=== PATIENT | male | born 1960 | race Caucasian/White ===

== ENCOUNTER 2022-08-19 10:04 | Inpatient (IN) | payer OTHER ==
[~2022-08-19] VITALS: Ht 177.8 cm; Wt 152.9 kg
[2022-08-19] MEDS ORDERED: MIDAZOLAM 5 MG/5 ML (VERSED) VIAL ONE (10:23)
[2022-08-19] MEDS ORDERED: fentaNYL INJ 100 MCG/2 ML AMP ONE (10:23)
[2022-08-19] MEDS ORDERED: EPTIFIBATIDE BOLUS 20 ML IV ONE (10:24)
[2022-08-19] MEDS ORDERED: LIDOCAINE 1% INJ 30 ML (XYLOCAINE) VIAL ONE (10:24)
[2022-08-19] MEDS ORDERED: HEParin 1000 UNIT/ML (10ML VIAL) FOR BOLUS ONE (10:24)
[2022-08-19] MEDS ORDERED: NS IV 1000 ML 1,000 ML ONE ×2 (10:24→11:40)
[2022-08-19] MEDS ORDERED: HEParin (CATH LAB) 2,000 ML IV ONE (10:24)
[2022-08-19] MEDS ORDERED: NITRO DRIP 25000 MCG/D5W 0 ML IV ONE (10:25)
[2022-08-19] MEDS ORDERED: diphenhydrAMINE 25 MG TAB (BENADRYL) PO PRN (10:45)
[2022-08-19] MEDS ORDERED: LACTULOSE SYRUP 10GM/15ML (ENULOSE) 30ML UDC PO PRN (10:45)
[2022-08-19] MEDS ORDERED: NS IV 1000 ML 1,000 ML IV SCH (10:45)
[2022-08-19] MEDS ORDERED: ANTACID SUSP 30 ML UDC (MYLANTA) PO PRN (10:45)
[2022-08-19] MEDS ORDERED: MILK OF MAGNESIA 400 MG/5 ML 30 ML UDC PO PRN (10:45)
[2022-08-19] MEDS ORDERED: BISACODYL 10 MG SUPP (DULCOLAX) PR PRN (10:45)
[2022-08-19] MEDS ORDERED: MELATONIN 3 MG TABLET PO PRN (10:45)
[2022-08-19] MEDS ORDERED: morphine INJ 4 MG/ML 1 ML (VIAL/SYRINGE) IV PRN ×2 (10:45→13:45)
[2022-08-19] MEDS ORDERED: ACETAMINOPHEN 325 MG TABLET PO PRN ×2 (10:45→13:15)
[2022-08-19] MEDS ORDERED: CALCIUM CARBONATE 500 MG (TUMS) TAB.CHEW PO PRN (10:45)
[2022-08-19] MEDS ORDERED: polyethylene glycoL POWDER 17 GM (MIRALAX) PACK PO PRN (10:45)
[2022-08-19] MEDS ORDERED: ONDANSETRON 4 MG (ZOFRAN) ORAL DISSOLVE TAB PO PRN (10:45)
[2022-08-19] MEDS ORDERED: diphenhydrAMINE 50 MG/ML INJ (BENADRYL) IVP PRN (10:45)
[2022-08-19] MEDS ORDERED: EPTIFIBATIDE BOLUS 10 ML IV ONE (11:17)
[2022-08-19] MEDS ORDERED: EPTIFIBATIDE DRIP 100 ML IV ONE (11:25)
[2022-08-19] MEDS ORDERED: DOPamine DRIP 0 ML IV ONE (11:29)
[2022-08-19] MEDS ORDERED: morphine INJ 4 MG/ML 1 ML (VIAL/SYRINGE) ONE (11:44)
[2022-08-19] MEDS ORDERED: TICAGRELOR 90 MG TABLET (BRILINTA) PO ONE (12:24)
[2022-08-19] MEDS ORDERED: FUROSEMIDE 40 MG/4 ML INJ (LASIX) ONE (12:50)
[2022-08-19] MEDS ORDERED: PATIENT MAY USE OWN MEDS, ALL PO SCH (13:15)
[2022-08-19] MEDS ORDERED: morphine INJ 10 MG/ML 1ML (SYR OR VIAL) IVP PRN (13:15)
--- NOTE | 2022-08-19 13:23 | Cardiac Procedure Note-CS/ASA ---
Pre-Procedure Note Pre-Op Procedure Note Date of Available H&P: Aug 19, 2022 Date H&P Reviewed: Aug 19, 2022 Time H&P Reviewed: 10:55 History & Physical: H&P Reviewed, No changes noted Conscious Sedation Pre-Proced ASA Score 4 For ASA 3 and 4: Consider anesthesia and medical clearance. Also, for patients with a history of failed moderate sedation consider anesthesia. Airway Lungs Heart ASA score ASA 1: a normal healthy patient ASA 2: a patient with a mild systemic disease (mid diabetes, controlled hypertension, obesity ASA 3: a patient with a severe systemic disease that limits activity (angina, COPD, prior Myocardial infarction) ASA 4: a patient with an incapacitating disease that is a constant threat to life (CHF, renal failure) ASA 5: a moribund patient not expected to survive 24 hrs. (ruptured aneurysm) ASA 6: a declared brain- patient whose organs are being harvested. For emergent operations, add the letter E after the classification Mallampati Classification Grade 3 Sedation Plan Analgesia, Amnesia, Plan communicated to team members The patient is an appropriate candidate to undergo the planned procedure, sedation, and anesthesia. The patient immediately re-assessed prior to indication. MANUELA VERAS MD FACP [facility] Aug 19, 2022 13:23
[2022-08-19] MEDS ORDERED: KCL 10 MEQ TAB (MICRO K) PO NR (13:30)
--- NOTE | 2022-08-19 13:35 | Cardiology History & Physical ---
HPI-Cardiology Cardiology H&P Date of Admission 08/19/22 Primary Care Physician Attending Physician: Constance Santos DO Attending Physician Angie Veras MD, MA FACP [facility]S Consulting Physician JUNIE 61 yo man who presented to the [place] ER with sudden onset of midsternal chest pain, severe pressure, radiating to shoulders, never experienced before, associated with diaphoresis and shortness of breath, w/o aggravating or relieving factors, diagnose as ac DE in [place] and referred to us for further e dimitris and treatment. Pt has chronic exertional shortness of breath. Has recently been experiencing dyspepsia. Denies vomiting or diarrhea. Has chronic joint and back pains Review of Systems-Cardiology Review of Systems Constitutional: malaise, tiredness; No weight loss, No weight gain Eyes: No vision change Ears/Nose/Throat: No ear discharge, No nasal drainage, No recent hearing loss Respiratory: As described under HPI Cardiovascular: As described under HPI Gastrointestinal: As described under HPI Genitourinary: No dysuria, No hematuria, No urine frequency changes Musculoskeletal: As describe under HPI Skin: No rash, No ulcerations Psychiatric/Neurological: No seizure, No focal weakness, No syncope Hematologic: No bleeding abnormalities UBE-Xqldrr-Safhtl Hx Past Medical History PMH As described under Assessment. Family Medical History Family Medical History: does not report fam h/o early CAD or SCD Allergies and Home Medications Allergies Coded Allergies: No Known Drug Allergies (Unverified , 08/19/22) Patient Home Medication List Home Medication List Reviewed: Yes Physical Exam-Cardiology Physical Exam Vital Signs/I&O 08/19/22 13:07 Temp 35.8 Pulse 105 Resp 26 B/P (MAP) 162/87 (112) Pulse Ox 91 O2 Delivery Nasal Cannula O2 Flow Rate 6.00 Capillary Refill : Constitutional: AAO x 3, well-developed, well-nourished HEENT: EOMI, hearing is well preserved; No xanthelasmas are seen Neck: carotid pulses are 2 + bilaterally, with good upstrokes Respiratory: No accessory muscle use; other (fair to good, bilateral air entry) Cardiovascular: regular rate-rhythm, S1 and S2, systolic murmur (soft JENNIFER at card base) Gastrointestinal: No tender; soft; No guarding, No rebound; audible bowel sounds Extremities: No clubbing, No cyanosis, No significant edema Neurologic/Psychiatric: oriented x 3, other (moves all limbs equally) Skin: No rash on exposed areas, No ulcerations on exposed areas A/P-Cardiology Assessment/Admission Diagnosis Ac ant wall STEMI - Card cath 08/19/22: LMCA Ok. LAD: up to 99% from ostium to mid portion, stented with PAULA (distal to prox - Supply 2.75x15, Supply 2.75x12, Supply 2.75x22, Skypoint 2.75x12). LCX has mild to mod diffuse plaque, OM 1 with up to 60% stenoses. RCA dominant, high anomalous origin, diffuse mild plaque. LVEF 31 mmHg. LVEF 45%, anteroapical hypokinesis DM II, insulin-requiring H/o SVT and / or A Fib, treated successfully with ablation several years ago, per pt report Hyperlipidemia that he is not treating Obesity Admission Status: Inpatient Order (span 2 midnights) Reason for Inpatient Admission: Ac DE Discussion and Recomendations * DAPT * Statin * Beta-trino * Monitor labs * Hosp consult for management of DM II * Echo * Discussed in detail with the patient, his , their son. Also discussed this am with Dr Santos on the phone ANGIE VERAS MD FACP FAC [facility]S Aug 19, 2022 13:35
[2022-08-19 13:40] VITALS: BP 147/83
--- NOTE | 2022-08-19 13:44 | History & Physical ---
History of Present Illness Date Seen 08/19/22 Attending Physician No,Local Physician PCP Admitting Physician: Constance Santos DO Attending Physician: Constance Santos DO Referring Physician Date of Admission Aug 19, 2022 at 10:50 Home Medications & Allergies Home Medications Reviewed patient Home Medication Reconciliation performed by pharmacy medication reconciliations surface lay out technician and/or nursing. Patients Allergies have been reviewed. Allergies Allergies Coded Allergies No Known Drug Allergies (Tkgfgvirvz47/17/22) Physical Exam Physical Exam Vital Signs Vital Signs - First Documented 08/19/22 13:07 Temp 35.8 Pulse 105 Resp 26 B/P (MAP) 162/87 (112) Pulse Ox 91 O2 Delivery Nasal Cannula O2 Flow Rate 6.00 Capillary Refill : Height, Weight, BMI Height: '" Weight: lbs. oz. kg; BMI Method: Results Results/Procedures Labs Patient resulted labs reviewed. CONSTANCE SANTOS DO Aug 19, 2022 13:44
[2022-08-19] MEDS ORDERED: INSN1U SQ (13:53)
[2022-08-19] MEDS ORDERED: INSU100V31 IJ (13:53)
[2022-08-19] MEDS: inSUlin ASPART (NovoLOG) 1 UNIT/0.01 ML (CHARGE PER UNIT) SC SCH ×3 (13:55→21:22)
[2022-08-19] MEDS: NS IV 1000 ML 1,000 ML IV SCH ×2 (13:56→15:08)
[2022-08-19 13:57] VITALS: BP 147/83
--- NOTE | 2022-08-19 13:57 | Diagnostic Imaging Report ---
INDICATION: Dyspnea and hypoxia. COMPARISON: None. DISCUSSION: 2 portable frontal views of the chest were obtained. Defibrillator patches are noted. Normal heart size. Mixed interstitial alveolar infiltrates are noted bilaterally and diffusely, likely edema, less likely pneumonia. No pleural fluid or pneumothorax. No osseous abnormality. IMPRESSION: 1. Severe pulmonary infiltrates, edema versus pneumonia. Dictated by: Dictated on workstation # [id number]
[2022-08-19 13:59] LABS: BILIRUBIN,URINE NEGATIVE (NEGATIVE); CLARITY,URINE CLEAR; COLOR,URINE YELLOW; GLUCOSE, URINE (UA) 2+ (NEGATIVE); KETONES,URINE NEGATIVE (NEGATIVE); LEUKOCYTE ESTERASE ,URINE NEGATIVE (NEGATIVE); NITRITE,URINE NEGATIVE (NEGATIVE); PROTEIN,URINE NEGATIVE (NEGATIVE)
[2022-08-19] MEDS ORDERED: RT-ALBUTEROL/IPRATROPIUM 3 ML (DUONEB) VIAL INH PRN (14:00)
--- NOTE | 2022-08-19 14:09 | Consultation ---
HPI History of Present Illness: HPI/Chief Complaint Chief complaint: Acute myocardial infarction with unstable angina requiring nitroglycerin drip and transferred from [facility] straight to cardiac catheterization with stent placement HPI: This is a 61-year-old white male clinic patient of Dr. 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 Immediate arrangements were made to transfer to cardiac catheterization with Dr. Saleem and ICU orders placed. Upon arrival he was vomiting but went straight to cardiac catheterization lab and required a very complicated long stent placement in the LAD. Source: patient, family, RN/MD Exam Limitations: clinical condition Date Seen 08/19/22 Attending Physician No,Local Physician PCP Admitting Physician: Constance Aldana DO Attending Physician: Constance Aldana DO Referring Physician Date of Admission Aug 19, 2022 at 10:50 Home Medications & Allergies Home Medications Reviewed patient Home Medication Reconciliation performed by pharmacy medication reconciliations desktop support technician and/or nursing. Patients Allergies have been reviewed. Allergies Allergies Coded Allergies No Known Drug Allergies (Txpgjuukxq25/17/22) Past Dhrsefj-Becvmt-Pwkxzz Hx Past Med/Social Hx: Reviewed Nursing Past Med/Soc Hx, Reviewed and Corrections made Patient Social History Marrital Status: Employed/Student: employed Alcohol Use: Denies Use Smoking Status: Never a Smoker Past Medical History Cardiac: Atrial Fibrillation Endocrine: Diabetes, Insulin dep Review of Systems Constitutional: see HPI, malaise, weakness EENTM: no symptoms reported Respiratory: dyspnea on exertion Cardiovascular: chest pain Gastrointestinal: nausea, vomiting Genitourinary: no symptoms reported Musculoskeletal: no symptoms reported Skin: no symptoms reported Psychiatric/Neurological: No Symptoms Reported All Other Systems Reviewed Negative Unless Noted: Yes Physical Exam Physical Exam Vital Signs Vital Signs - First Documented 08/19/22 08/19/22 13:04 13:07 Temp 35.8 Pulse 106 Resp 26 B/P (MAP) 162/87 (112) Pulse Ox 91 O2 Delivery Nasal Cannula O2 Flow Rate 6.00 Capillary Refill : Height, Weight, BMI Height: '" Weight: lbs. oz. kg; 48.30 BMI Method: General Appearance: WD/WN, Anxious, Moderate Distress, Other (Blount and ashen) Eyes: Bilateral Eye Normal Inspection, Bilateral Eye PERRL HEENT: PERRL/EOMI, Normal ENT Inspection, Pharynx Normal Neck: Full Range of Motion, Normal Inspection, Non Tender, Supple, Carotid Bruit Respiratory: Chest Non Tender, Lungs Clear, Normal Breath Sounds, No Accessory Muscle Use, No Respiratory Distress Cardiovascular: Regular Rate, Rhythm, No Edema, No Gallop, No JVD, No Murmur, Normal Peripheral Pulses Gastrointestinal: Normal Bowel Sounds, No Organomegaly, No Pulsatile Mass, Non Tender, Soft Back: Normal Inspection, No CVA Tenderness, No Vertebral Tenderness Extremity: Normal Capillary Refill, Normal Inspection, Normal Range of Motion, Non Tender, No Calf Tenderness, No Pedal Edema Neurologic/Psychiatric: Alert, Oriented x3, No Motor/Sensory Deficits, Normal Mood/Affect Skin: Normal Color, Warm/Dry Lymphatic: No Adenopathy Results Results/Procedures Labs Laboratory Tests 08/20/22 03:46 Patient resulted labs reviewed. Assessment/Plan Assessment and Plan Assess & Plan/Chief Complaint Assessment: Acute myocardial infarction with unstable angina presentation at [facility] requiring emergent transfer to cardiac catheterization lab and complicated LAD stent placement by Dr. Saleem History of atrial fibrillation status post ablation Diabetes insulin-dependent Refusal to take statins Suspected SAMI Plan: Appreciate Dr. Saleem Supportive care Stent placement protocol Diagnosis/Problems Diagnosis/Problems (1) Myocardial infarction acute CONSTANCE ALDANA DO Aug 19, 2022 14:09
[2022-08-19 14:10] LABS: BACTERIA,URINE NEGATIVE /HPF
--- NOTE | 2022-08-19 14:14 | Tele-ICU Progress Note ---
Subjective Date Seen by a Provider: Aug 19, 2022 Time Seen by a Provider: 14:14 Subjective/Events-last exam H&P is from ER notes Patient's information available about PMH, allergy reviewed in EMR. ROS as per chart and RN report Video assessment done using teleICU camera, rest of exam as per RN Discussed with RN. He is a 61-year-old male with past medical history of obesity, type 2 diabetes mellitus requiring insulin and hyperlipidemia admitted to [facility] with a central chest pain and found to have a STEMI and subsequently he is transferred to [facility] in [place] for higher level of care. He was immediately taken to the cardiac Treatment Technician and coronary angiogram done which showed LAD occlusion up to 99% from ostium to midportion requiring 4 stents. Postprocedure he is admitted to the intensive care unit at which time I have evaluated via video and discussed with the HAND CANDY DIPPER. Patient is having shortness of breath and constant cough and ICU nurse reported that patient having gurgling sounds and bilateral coarse rales. Immediately I have ordered a chest x-ray which showed her evidence of pulmonary edema hence I have ordered a additional Lasix and BiPAP ventilation. No telemetry ICU consultation requested however in view of his respiratory distress and per protocol I am evaluating the patient. Impression 1. Acute STEMI anterior wall status post LAD stenting x4 with a drug elevated stents. 2. Slightly decreased LV left ventricular ejection fraction with pulmonary edema 3. Acute hypoxic respiratory failure requiring BiPAP ventilation 4. Morbid obesity 5. History of hyperlipidemia 6. Type 2 diabetes mellitus requiring insulin 7. History of some tacky arrhythmia apparently successfully treated with ablation several years ago per patient report Recommendations 1. BiPAP ventilation 2. IV Lasix 3. STEMI treatment per cardiology 4. We will repeat chest x-ray and electrolytes. 5. Management type 2 diabetes mellitus per primary care physician 6. DVT prophylaxis per cardiology. Sepsis Event Evaluation Height, Weight, BMI Height: '" Weight: lbs. oz. kg; 48.30 BMI Method: Exam Exam Patient acknowledged, consented, and participated in this virtual visit which was conducted using real time audio/video Vital Signs Date Time Temp Pulse Resp B/P (MAP) Pulse Ox O2 Delivery O2 Flow Rate FiO2 08/19/22 13:57 35.8 100 100 08/19/22 13:54 NIV Bilevel 40.00 08/19/22 13:40 100 26 100 40.00 08/19/22 13:10 85 Nasal Cannula 6.00 08/19/22 13:07 35.8 105 26 162/87 (112) 91 Nasal Cannula 6.00 Height & Weight Height: '" Weight: lbs. oz. kg; 48.30 BMI Method: General Appearance: Mild Distress Assessment/Plan Assessment/Plan as above Critical Care: Critically Ill Patient Time spent with patient (mins): 25 RAMO WISE MD Aug 19, 2022 14:14
[2022-08-19] MEDS ORDERED: FUROSEMIDE 40 MG/4 ML INJ (LASIX) IVP NR (14:30)
[2022-08-19] MEDS ORDERED: inSUlin ASPART (NovoLOG) 1 UNIT/0.01 ML (CHARGE PER UNIT) SC SCH (15:00)
[2022-08-19] MEDS ORDERED: ATROPINE INJECTION 1 MG/10 ML SYR (ABBOTT) ONE (15:33)
[2022-08-19] MEDS ORDERED: MAGNESIUM 1 GM/100 ML IVPB 200 ML IV ONE (18:00)
[2022-08-19] MEDS ORDERED: KCL 10 MEQ TAB (MICRO K) PO ONE (18:00)
[2022-08-19] MEDS: MAGNESIUM 1 GM/100 ML IVPB 100 ML IV SCH ×2 (18:06→19:38)
[2022-08-19] MEDS: ONDANSETRON 4 MG/2 ML (SDV) Z0FRAN IV PRN (18:50)
--- NOTE | 2022-08-19 19:10 | CARDIAC CATHETERIZATION ---
DATE OF SERVICE: 08/19/2022 CARDIAC CATHETERIZATION AND CORONARY INTERVENTION REPORT INDICATION: A 61-year-old gentleman with known history of diabetes mellitus who presented to the emergency room with sudden onset of retrosternal area of retrosternal chest pain that was associated with diaphoresis. Pain was severe. He was diagnosed with acute ST-elevated myocardial infarction. He was treated with aspirin and Plavix and Lovenox. He was transferred to this hospital for emergency cardiac catheterization. We spoke with him and examined him before the procedure. He wanted to proceed. DESCRIPTION OF PROCEDURE: Right groin was prepared and draped in the usual sterile fashion. 1% lidocaine as local anesthesia. modified Seldinger technique was used to advance a #6-Setswana sheath, right femoral artery, 6-Setswana JL4 catheter was used for a 6-Setswana JL4 guide catheter was used to engage the left coronary artery and we proceeded with percutaneous intervention to the left anterior descending artery that is described below. Subsequently, we carried out left heart catheterization with a pigtail catheter and left ventricular angiography was performed. The pigtail was pulled back to the aortic root and aortic root angiography was performed. Aortic root angiography was performed because we were because we were not able to engage the right coronary artery with the usual right coronary catheters. This helped in locating the right coronary artery and we were subsequently able to engage it with a JR5 diagnostic catheter. At the end of the procedure, the sheath was sutured in place and the patient was transferred to the floor for manual sheath removal. Percutaneous intervention of the left anterior descending: The left anterior descending artery was severely diseased beginning from its ostium to its mid portion. There was stenosis of up to 99%. The distal flow was DUSTIN 1. We advanced a ChoICE floppy wire to cross the lesions with moderate difficulty. It was placed in the distal vessel and the tip of the wire was placed in the distal vessel. Multiple balloon angioplasty procedures were carried out with 2.0 x 30 mm and, subsequently 2.0 x 20, mm balloons. Extensive stenting was done. From distal to proximal, the stents are Declan 2.75 x 15 mm, [place] 2.75 x 12 mm, [place] 2.75 x 22 mm, and Skypoint, 2.75 x 12 mm. These stents are all slightly overlapping. The stents were deployed at 12 atmospheres. The sites of overlap had balloon angioplasty at 14 atmospheres. Subsequent angiography revealed 0% residual stenosis and flow improved to UDSTIN 3. Angioplasty equipment was removed. LEFT VENTRICULAR ANGIOGRAPHY: Left ventricular angiography was carried out in the right anterior oblique projection. Global left ventricular systolic function is mildly to moderately impaired. There is anteroapical hypokinesis. The left ventricular ejection fraction approximately 45%. HEMODYNAMICS: Left ventricular end diastolic pressure, following coronary angiography and coronary intervention was 31 mmHg. There is no significant pressure gradient on pullback across the aortic valve. Aortic Root Angiography Aortic root angiography showed the high anomalous origin of the RCA and we were subsequently able to engage it. Aortic valve leaflets showed good leaflet excursion. There was mild, catheter-induced aortic regurgitation. There was no enlargement or dissection of the aortic root CORONARY ANGIOGRAPHY: Left main coronary artery did not exhibit significant disease. Left anterior descending artery was severely diseased from its ostium to its mid portion and there was a stenosis of up to 99% and the antegrade flow was DUSTIN #2. following balloon angioplasty and stenting, there is 0% residual and the distal flow is DUSTIN 3. The stents from distal to proximal are Declan 2.75 x 15 mm, [place] 2.75 x 12 mm, [place] 2.75 x 22 mm, and Skypoint 2.75 x 12 mm. The left circumflex artery is nondominant. It has mild to moderate plaques. The first obtuse marginal branch of the left circumflex artery has multiple stenoses of up to approximately 60%. 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 It is a dominant artery. It has mild diffuse plaques. CONCLUSION: 1. Coronary artery disease, primarily consisting of a very long up to 99% stenosis of the ostial to mid left anterior descending artery with DUSTIN 2 distal flow. This was successfully stented with drug-eluting stents that are, from distal to proximal, [place] 2.75 x 15, Declan 2.75 x 12, [place] 2.75 x 22, and Skypoint 2.75 x 12 mm. The distal left anterior descending artery has multiple stenoses of up to 50%. Following stent deployment, the flow in the distal vessel is DUSTIN 3. There is no residual stenosis. The left circumflex artery has cmgg-ta-damoxapt diffuse plaque. First obtuse marginal branch has multiple stenoses of approximately 50%. Right coronary artery is dominant and has multiple plaques. 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 2. Ikut-gd-phvsrymq impairment of global left systolic function with anteroapical hypokinesis and with ejection fraction of 40-45%. 3. Elevated left ventricular end-diastolic pressure (33 mmHg). Job ID: [id number] DocumentID: [id number] Dictated Date: 08/19/2022 13:07:20 Brand Mgr Date: 08/19/2022 19:09:00 Dictated By: MANUELA VERAS MD; JESSE; FACP; PAPAC; RUDY
[2022-08-19] MEDS: TICAGRELOR 90 MG TABLET (BRILINTA) PO SCH (20:29)
[2022-08-19] MEDS: DOCUSATE SODIUM 100 MG (COLACE) CAP PO SCH (21:22)
[2022-08-19] MEDS: SENNOSIDES 8.6 MG (SENOKOT) TAB PO SCH (21:22)
[2022-08-20] MEDS ORDERED: NS IV 500 ML 500 ML IV PRN (00:45)
[2022-08-20 04:24] LABS: BASOPHILS % (AUTO) 0 % (0-10); EOSINOPHILS % (AUTO) 0 % (0-10); HEMATOCRIT 45 % (40-54); HEMOGLOBIN 15.3 g/dL (13.3-17.7); LYMPHOCYTES # (AUTO) 1.1 10^3/uL (1.0-4.0); LYMPHOCYTES % (AUTO) 7 % (12-44); MEAN CORPUSCULAR HEMOGLOBIN 30 pg (25-34); MEAN CORPUSCULAR HGB CONC 34 g/dL (32-36); MEAN CORPUSCULAR VOLUME 88 fL (80-99); MEAN PLATELET VOLUME 11.2 fL (9.0-12.2); MONOCYTES # (AUTO) 0.8 10^3/uL (0.0-1.0); MONOCYTES % (AUTO) 5 % (0-12); NEUTROPHILS # (AUTO) 14.6 10^3/uL (1.8-7.8); NEUTROPHILS % (AUTO) 88 % (42-75); PLATELET COUNT 273 10^3/uL (130-400); WHITE BLOOD COUNT 16.7 10^3/uL (4.3-11.0)
[2022-08-20 05:05] LABS: ALBUMIN 3.7 GM/DL (3.2-4.5); BILIRUBIN,TOTAL 0.6 MG/DL (0.1-1.0); CALCIUM 8.8 MG/DL (8.5-10.1); CREATININE SERUM 1.04 MG/DL (0.60-1.30); MAGNESIUM 2.2 MG/DL (1.6-2.4); PHOSPHORUS 2.7 MG/DL (2.3-4.7); POTASSIUM 4.2 MMOL/L (3.6-5.0)
[2022-08-20] MEDS: ONDANSETRON 4 MG/2 ML (SDV) Z0FRAN IV PRN ×2 (06:01→15:15)
[2022-08-20 06:17] LABS: BAND NEUTROPHILS 1 %; EOSINOPHILS % (MANUAL) 1 %; LYMPHOCYTES % (MANUAL) 4 %; MONOCYTES % (MANUAL) 6 %; NEUTROPHILS % (MANUAL) 88 %; RBC MORPH NORMAL
--- NOTE | 2022-08-20 06:43 | Progress Note ---
Subjective Date Seen by a Provider: Aug 20, 2022 Time Seen by a Provider: 11:00 Subjective/Events-last exam Patient doing well Made it clear he does not want any expensive medication since his insurance does not pay for medication No more chest pain Nausea improved after antiemetics Review of Systems General: Fatigue, Malaise Objective Exam Last Set of Vital Signs Vital Signs Date Time Temp Pulse Resp B/P (MAP) Pulse Ox O2 Delivery O2 Flow Rate FiO2 08/20/22 06:00 71 25 125/67 (86) 98 Nasal Cannula 2.00 08/19/22 23:33 37.6 Capillary Refill : Less Than 3 Seconds I&O Intake and Output 08/20/22 00:00 Intake Total 540 ml Output Total 2800 ml Balance -2260 ml Intake Oral 540 ml Output Urine Total 2800 ml Daily Weight Change No General: Alert, Oriented X3, Cooperative, No Acute Distress Lungs: Clear to Auscultation, Normal Air Movement Heart: Regular Rate, Normal S1, Normal S2, No Murmurs Psych/Mental Status: Mental Status NL, Mood NL Results Lab Laboratory Tests 08/19/22 13:54: Urine Color YELLOW, Urine Clarity CLEAR, Urine pH 5.0, Urine Specific [place] <=1.005, Urine Protein NEGATIVE, Urine Glucose (UA) 2+H, Urine Ketones NEGATIVE, Urine Nitrite NEGATIVE, Urine Bilirubin NEGATIVE, Urine Urobilinogen 0.2, Urine Leukocyte Esterase NEGATIVE, Urine RBC (Auto) TRACE-IH, Urine RBC NONE, Urine WBC NONE, Urine Squamous Epithelial Cells NONE, Urine Crystals NONE, Urine Bacteria NEGATIVE, Urine Casts NONE, Urine Mucus NEGATIVE, Urine Culture Indicated NO 08/19/22 17:05: Glucometer 212H 08/19/22 20:32: Glucometer 189H 08/20/22 03:46: White Blood Count 16.7H, Red Blood Count 5.10, Hemoglobin 15.3, Hematocrit 45, Mean Corpuscular Volume 88, Mean Corpuscular Hemoglobin 30, Mean Corpuscular Hemoglobin Concent 34, Red Cell Distribution Width 13.0, Platelet Count 273, Mean Platelet Volume 11.2, Immature Granulocyte % (Auto) 0, Neutrophils (%) (Auto) 88H, Lymphocytes (%) (Auto) 7L, Monocytes (%) (Auto) 5, Eosinophils (%) (Auto) 0, Basophils (%) (Auto) 0, Neutrophils # (Auto) 14.6H, Lymphocytes # (Auto) 1.1, Monocytes # (Auto) 0.8, Eosinophils # (Auto) 0.0, Basophils # (Auto) 0.0, Immature Granulocyte # (Auto) 0.1, Neutrophils % (Manual) 88, Lymphocytes % (Manual) 4, Monocytes % (Manual) 6, Eosinophils % (Manual) 1, Band Neutrophils 1, Blood Morphology Comment NORMAL, Sodium Level 138, Potassium Level 4.2, Chloride Level 109H, Carbon Dioxide Level 19L, Anion Gap 10, Blood Urea Nitrogen 15, Creatinine 1.04, Estimat Glomerular Filtration Rate 81, BUN/Creatinine Ratio 14, Glucose Level 204H, Calcium Level 8.8, Corrected Calcium 9.0, Phosphorus Level 2.7, Magnesium Level 2.2, Total Bilirubin 0.6, Aspartate Amino Transf (AST/SGOT) 176H, Alanine Aminotransferase (ALT/SGPT) 44, Alkaline Phosphatase 89, Total Protein 7.0, Albumin 3.7, Triglycerides Level 180H, Cholesterol Level 149, LDL Cholesterol Direct 101, VLDL Cholesterol 36, HDL Cholesterol 25L, Thyroid Stimulating Hormone (TSH) 0.90 Assessment/Plan Assessment/Plan Assess & Plan/Chief Complaint Assessment: Acute myocardial infarction with unstable angina presentation at [facility] requiring emergent transfer to cardiac catheterization lab and complicated LAD stent placement by Dr. Saleem History of atrial fibrillation status post ablation Diabetes insulin-dependent Refusal to take statins Suspected SAMI Plan: Appreciate Dr. Saleem Supportive care Stent placement protocol Diagnosis/Problems Diagnosis/Problems (1) Myocardial infarction acute LORENA ALDANA DO Aug 20, 2022 06:43
[2022-08-20] MEDS: KCL 20 MEQ TAB (K-DUR) PO SCH (06:45)
[2022-08-20] MEDS ORDERED: METOCLOPRAMIDE INJ 10 MG/2 ML (REGLAN) IVP PRN (06:45)
[2022-08-20] MEDS ORDERED: SCOPOLAMINE 1.5 MG (TRANSDERM-SCOP) PATCH TD ONE (06:45)
[2022-08-20] MEDS: MAGNESIUM 1 GM/100 ML IVPB 100 ML IV SCH (06:45)
[2022-08-20] MEDS: POTASSIUM CL 10MEQ/50ML IVPB 50 ML IV SCH (06:45)
[2022-08-20] MEDS ORDERED: SCOPOLAMINE 1.5 MG (TRANSDERM-SCOP) PATCH ONE (06:48)
--- NOTE | 2022-08-20 07:11 | Diagnostic Imaging Report ---
INDICATION: CHF. COMPARISON: 08/19/2022 FINDINGS: Single frontal radiographic view of the chest was obtained and demonstrates mild cardiomegaly. Pulmonary vasculature however is within normal limits. Lungs show significant interval improved aeration. There is no large effusion or pneumothorax. Osseous structures show no acute adverse abnormality. IMPRESSION: 1. Mild cardiomegaly. 2. Significant overall improved aeration. Dictated by: Dictated on workstation # [id number]
[2022-08-20] MEDS: PROMETHAZINE INJ 25 MG/ML (PHENERGAN) AMP IM PRN ×2 (07:16→15:48)
--- NOTE | 2022-08-20 08:39 | Tele-ICU Progress Note ---
Subjective Date Seen by a Provider: Aug 20, 2022 Time Seen by a Provider: 11:38 Subjective/Events-last exam Subjective/Events-last exam H&P is from Cardiology Patient's information available about PMH, allergy reviewed in EMR. ROS as per chart and RN report Video assessment done using teleICU camera, rest of exam as per RN Discussed with RN. He is a 61-year-old male with past medical history of obesity, type 2 diabetes mellitus requiring insulin and hyperlipidemia admitted to [facility] with a central chest pain and found to have a STEMI and subsequently he is transferred to [facility] via [facility] in [place] for higher level of care. He was immediately taken to the cardiac Pbx Technician and coronary angiogram done which showed LAD occlusion up to 99% from ostium to midportion requiring 4 stents. Postprocedure he is admitted to the intensive care unit at which time I have evaluated via video and discussed with the PHARMACEUTICAL COMPOUNDING SUPERVISOR. Patient is having shortness of breath and constant cough and ICU nurse reported that patient having gurgling sounds and bilateral coarse rales. Immediately I have ordered a chest x-ray which showed her evidence of pulmonary edema hence I have ordered a additional Lasix and BiPAP ventilation. No telemetry ICU consultation requested however in view of his respiratory distress and per protocol I am evaluating the patient. however today he is feeling much better. chest x-ray is better. pulmonary edema resolved. He is on room air, no chest pain. resting comfortably Impression 1. Acute STEMI anterior wall status post LAD stenting x4 with a drug elevated stents. 2. Slightly decreased LV left ventricular ejection fraction with pulmonary edema improved 3. Acute hypoxic respiratory failure improved 4. Morbid obesity 5. History of hyperlipidemia 6. Type 2 diabetes mellitus requiring insulin 7. History of some tacky arrhythmia apparently successfully treated with ablation several years ago per patient report Recommendations 1. Off bipap 2. IV Lasix prn 3. STEMI treatment per cardiology 4. Todays CXR reviewed 5. Management type 2 diabetes mellitus per primary care physician 6. DVT prophylaxis per cardiology. Sepsis Event Evaluation Height, Weight, BMI Height: '" Weight: lbs. oz. kg; 48.30 BMI Method: Exam Exam Patient acknowledged, consented, and participated in this virtual visit which was conducted using real time audio/video Vital Signs Date Time Temp Pulse Resp B/P (MAP) Pulse Ox O2 Delivery O2 Flow Rate FiO2 08/20/22 07:55 96 Room Air 08/20/22 07:32 37.4 Room Air 08/20/22 07:00 83 08/20/22 06:00 71 25 125/67 (86) 98 Nasal Cannula 2.00 08/20/22 05:00 76 24 140/79 (99) 96 Nasal Cannula 2.00 08/20/22 04:00 97 Nasal Cannula 2.00 08/20/22 04:00 82 16 129/74 (92) 96 Nasal Cannula 2.00 08/20/22 03:00 73 20 126/66 (86) 97 Nasal Cannula 2.00 08/20/22 02:00 80 34 116/71 (86) 96 Nasal Cannula 2.00 08/20/22 01:00 75 15 152/86 (108) 97 Nasal Cannula 2.00 08/20/22 01:00 80 08/20/22 00:00 79 20 147/86 (106) 96 Nasal Cannula 2.00 08/19/22 23:59 97 Nasal Cannula 2.00 08/19/22 23:33 37.6 Nasal Cannula 2.00 08/19/22 23:00 78 19 125/79 (94) 98 Nasal Cannula 2.00 08/19/22 22:00 79 25 125/70 (88) 97 Nasal Cannula 2.00 08/19/22 21:00 84 13 140/87 (104) 97 Nasal Cannula 2.00 08/19/22 20:00 97 Nasal Cannula 2.00 08/19/22 20:00 92 18 133/87 (102) 95 Nasal Cannula 2.00 08/19/22 19:35 36.7 08/19/22 19:00 92 08/19/22 19:00 92 18 132/82 (99) 94 Nasal Cannula 2.00 08/19/22 18:15 Nasal Cannula 2.00 08/19/22 18:00 95 13 132/80 (97) 98 Nasal Cannula 4.00 08/19/22 17:10 Nasal Cannula 4.00 08/19/22 17:00 96 22 139/85 (103) 94 NIV Bilevel 40.00 08/19/22 16:00 98 128/82 (97) 98 NIV Bilevel 40.00 Arterial Line 08/19/22 16:00 96 Nasal Cannula 4.00 08/19/22 16:00 36.3 08/19/22 15:00 95 21 138/76 (96) 95 NIV Bilevel 40.00 08/19/22 14:30 98 120/69 (86) NIV Bilevel 40.00 08/19/22 14:00 101 125/77 (93) NIV Bilevel 40.00 08/19/22 13:57 35.8 100 100 08/19/22 13:54 NIV Bilevel 40.00 08/19/22 13:45 99 157/93 (114) Nasal Cannula 6.00 08/19/22 13:40 100 26 100 40.00 08/19/22 13:30 103 165/93 (117) Nasal Cannula 6.00 08/19/22 13:15 109 147/83 (104) Nasal Cannula 6.00 08/19/22 13:10 85 Nasal Cannula 6.00 08/19/22 13:07 35.8 105 26 162/87 (112) 91 Nasal Cannula 6.00 08/19/22 13:04 106 I & O 08/20/22 07:00 Intake Total 2190 ml Output Total 3125 ml Balance -935 ml Height & Weight Height: '" Weight: lbs. oz. kg; 48.30 BMI Method: General Appearance: WD/WN, Anxious, Moderate Distress, Other (Bl[place] and ashen) HEENT: PERRL/EOMI, Normal ENT Inspection, Pharynx Normal Neck: Full Range of Motion, Normal Inspection, Non Tender, Supple, Carotid Bruit Respiratory: Chest Non Tender, Lungs Clear, Normal Breath Sounds, No Accessory Muscle Use, No Respiratory Distress Cardiovascular: Regular Rate, Rhythm, No Edema, No Gallop, No JVD, No Murmur, Normal Peripheral Pulses Capillary Refill: Less Than 3 Seconds Extremity: Normal Capillary Refill, Normal Inspection, Normal Range of Motion, Non Tender, No Calf Tenderness, No Pedal Edema Neurologic/Psychiatric: Alert, Oriented x3, No Motor/Sensory Deficits, Normal Mood/Affect Skin: Normal Color, Warm/Dry Lymphatic: No Adenopathy Results Lab Laboratory Tests 08/20/22 03:46 Assessment/Plan Assessment/Plan as above Critical Care: Critically Ill Patient Time spent with patient (mins): 15 RAMO WISE MD Aug 20, 2022 08:39
[2022-08-20] MEDS ORDERED: ASPIRIN E.C. 81 MG (ECOTRIN) TAB PO SCH (09:00)
[2022-08-20] MEDS: inSUlin ASPART (NovoLOG) 1 UNIT/0.01 ML (CHARGE PER UNIT) SC SCH ×4 (09:46→20:56)
[2022-08-20] MEDS: ASPIRIN 81 MG CHEW (CHILDREN'S ASA) PO SCH (09:46)
[2022-08-20] MEDS: DOCUSATE SODIUM 100 MG (COLACE) CAP PO SCH ×2 (09:47→20:32)
[2022-08-20] MEDS: SENNOSIDES 8.6 MG (SENOKOT) TAB PO SCH ×2 (09:47→20:39)
[2022-08-20] MEDS: PANTOPRAZOLE 40 MG (PROTONIX) TAB PO SCH (09:47)
[2022-08-20] MEDS: TICAGRELOR 90 MG TABLET (BRILINTA) PO SCH ×2 (09:47→20:39)
--- NOTE | 2022-08-20 10:23 | Progress Note - Cardiology ---
Cardiology SOAP Progress Note Subjective: No cp No palp or syncope No n/v/d No focal weakness Gen malaise and weakness present No dysuria Objective: I&O/Vital Signs 08/19/22 08/19/22 08/19/22 08/20/22 23:00 23:33 23:59 00:00 Temp 37.6 Pulse 78 79 Resp 19 20 B/P (MAP) 125/79 (94) 147/86 (106) Pulse Ox 98 97 96 O2 Delivery Nasal Cannula Nasal Cannula Nasal Cannula Nasal Cannula O2 Flow Rate 2.00 2.00 2.00 2.00 08/20/22 08/20/22 08/20/22 08/20/22 01:00 01:00 02:00 03:00 Pulse 80 75 80 73 Resp 15 34 20 B/P (MAP) 152/86 (108) 116/71 (86) 126/66 (86) Pulse Ox 97 96 97 O2 Delivery Nasal Cannula Nasal Cannula Nasal Cannula O2 Flow Rate 2.00 2.00 2.00 08/20/22 08/20/22 08/20/22 08/20/22 04:00 04:00 05:00 06:00 Pulse 82 76 71 Resp 16 24 25 B/P (MAP) 129/74 (92) 140/79 (99) 125/67 (86) Pulse Ox 96 97 96 98 O2 Delivery Nasal Cannula Nasal Cannula Nasal Cannula Nasal Cannula O2 Flow Rate 2.00 2.00 2.00 2.00 08/20/22 08/20/22 08/20/22 08/20/22 07:00 07:00 07:32 07:55 Temp 37.4 Pulse 83 69 Resp 12 B/P (MAP) 102/46 (64) Pulse Ox 96 96 O2 Delivery Nasal Cannula Room Air Room Air O2 Flow Rate 2.00 08/20/22 08/20/22 08/20/22 08/20/22 08:00 08:00 09:00 09:14 Temp 36.4 Pulse 75 80 Resp 17 21 B/P (MAP) 108/58 (75) 137/77 (97) Pulse Ox 95 95 96 O2 Delivery Room Air Room Air Room Air O2 Flow Rate 0.00 08/20/22 00:00 Intake Total 540 ml Output Total 2800 ml Balance -2260 ml Condition: DP/PT pulses palpable Device Insertion Site: without hematoma Bruising: mild bruising Constitutional: AAO x 3, well-developed, well-nourished Respiratory: No accessory muscle use; other (fair to good, bilateral air entry) Cardiovascular: regular rate-rhythm, S1 and S2, systolic murmur (soft JENNIFER at card base) Gastrointestional: No tender; soft; No guarding, No rebound; audible bowel sounds Extremities: No clubbing, No cyanosis, No significant edema Neurologic/Psychiatric: oriented x 3, other (moves all limbs equally) Skin: No rash on exposed areas, No ulcerations on exposed areas Results/Procedures: Labs Laboratory Tests 08/19/22 13:54: Urine Color YELLOW, Urine Clarity CLEAR, Urine pH 5.0, Urine Specific [place] <=1.005, Urine Protein NEGATIVE, Urine Glucose (UA) 2+H, Urine Ketones NEGATIVE, Urine Nitrite NEGATIVE, Urine Bilirubin NEGATIVE, Urine Urobilinogen 0.2, Urine Leukocyte Esterase NEGATIVE, Urine RBC (Auto) TRACE-IH, Urine RBC NONE, Urine WBC NONE, Urine Squamous Epithelial Cells NONE, Urine Crystals NONE, Urine Bacteria NEGATIVE, Urine Casts NONE, Urine Mucus NEGATIVE, Urine Culture Indicated NO 08/19/22 17:05: Glucometer 212H 08/19/22 20:32: Glucometer 189H 08/20/22 03:46: White Blood Count 16.7H, Red Blood Count 5.10, Hemoglobin 15.3, Hematocrit 45, Mean Corpuscular Volume 88, Mean Corpuscular Hemoglobin 30, Mean Corpuscular Hemoglobin Concent 34, Red Cell Distribution Width 13.0, Platelet Count 273, Mean Platelet Volume 11.2, Immature Granulocyte % (Auto) 0, Neutrophils (%) (Auto) 88H, Lymphocytes (%) (Auto) 7L, Monocytes (%) (Auto) 5, Eosinophils (%) (Auto) 0, Basophils (%) (Auto) 0, Neutrophils # (Auto) 14.6H, Lymphocytes # (Auto) 1.1, Monocytes # (Auto) 0.8, Eosinophils # (Auto) 0.0, Basophils # (Auto) 0.0, Immature Granulocyte # (Auto) 0.1, Neutrophils % (Manual) 88, Lymphocytes % (Manual) 4, Monocytes % (Manual) 6, Eosinophils % (Manual) 1, Band Neutrophils 1, Blood Morphology Comment NORMAL, Sodium Level 138, Potassium Level 4.2, Chloride Level 109H, Carbon Dioxide Level 19L, Anion Gap 10, Blood Urea Nitrogen 15, Creatinine 1.04, Estimat Glomerular Filtration Rate 81, BUN/Creatinine Ratio 14, Glucose Level 204H, Calcium Level 8.8, Corrected Calcium 9.0, Phosphorus Level 2.7, Magnesium Level 2.2, Total Bilirubin 0.6, Aspartate Amino Transf (AST/SGOT) 176H, Alanine Aminotransferase (ALT/SGPT) 44, Alkaline Phosphatase 89, Total Protein 7.0, Albumin 3.7, Triglycerides Level 180H, Cholesterol Level 149, LDL Cholesterol Direct 101, VLDL Cholesterol 36, HDL Cholesterol 25L, Thyroid Stimulating Hormone (TSH) 0.90 08/20/22 08:25: Influenza Type A (RT-PCR) Not Detected, Influenza Type B (RT-PCR) Not Detected, SARS-CoV-2 RNA (RT-PCR) Not Detected Laboratory Tests 08/20/22 03:46 A/P: Assessment: Ac ant wall STEMI - Card cath 08/19/22: LMCA Ok. LAD: up to 99% from ostium to mid portion, stented with PAULA (distal to prox - [place] 2.75x15, [place] 2.75x12, [place] 2.75x22, [place] 2.75x12). LCX has mild to mod diffuse plaque, OM 1 with up to 60% stenoses. RCA dominant, high anomalous origin, diffuse mild plaque. LVEF 31 mmHg. LVEF 45%, anteroapical hypokinesis - brief NSVT (7 beats within 12 hours of PA on 08/19/22) Ischemic cardiomyopathy and ac sys CHF DM II, insulin-requiring H/o SVT and / or A Fib, treated successfully with ablation several years ago, per pt report Hyperlipidemia that he is not treating Obesity Plan: * DAPT * Statin * Beta-trino * MERLYN-inhib * SGLT-2 inhib * Spironolactone * Monitor labs * Hosp consult for management of DM II * Echo today MANUELA VERAS MD FACP [facility] Aug 20, 2022 10:23
[2022-08-20] MEDS ORDERED: SPIRONOLACTONE 25 MG (ALDACTONE) TAB PO NR (10:30)
[2022-08-20] MEDS ORDERED: FUROSEMIDE 20 MG (LASIX) TAB PO NR (10:30)
[2022-08-20] MEDS: EMPAGLIFLOZIN 10 MG TABLET (JARDIANCE) PO NR ×2 (10:45→11:11)
[2022-08-21 05:08] LABS: BASOPHILS % (AUTO) 0 % (0-10); EOSINOPHILS % (AUTO) 0 % (0-10); HEMATOCRIT 42 % (40-54); HEMOGLOBIN 14.5 g/dL (13.3-17.7); LYMPHOCYTES # (AUTO) 1.3 10^3/uL (1.0-4.0); LYMPHOCYTES % (AUTO) 10 % (12-44); MEAN CORPUSCULAR HEMOGLOBIN 30 pg (25-34); MEAN CORPUSCULAR HGB CONC 34 g/dL (32-36); MEAN CORPUSCULAR VOLUME 88 fL (80-99); MEAN PLATELET VOLUME 10.9 fL (9.0-12.2); MONOCYTES # (AUTO) 0.9 10^3/uL (0.0-1.0); MONOCYTES % (AUTO) 6 % (0-12); NEUTROPHILS # (AUTO) 11.4 10^3/uL (1.8-7.8); NEUTROPHILS % (AUTO) 83 % (42-75); PLATELET COUNT 257 10^3/uL (130-400); WHITE BLOOD COUNT 13.7 10^3/uL (4.3-11.0)
[2022-08-21 05:18] LABS: ALBUMIN 3.6 GM/DL (3.2-4.5); POTASSIUM 4.1 MMOL/L (3.6-5.0)
[2022-08-21 05:21] LABS: TOTAL PROTEIN 7.2 GM/DL (6.4-8.2)
[2022-08-21 05:22] LABS: BILIRUBIN,TOTAL 1.1 MG/DL (0.1-1.0)
[2022-08-21] MEDS: MAGNESIUM 1 GM/100 ML IVPB 100 ML IV SCH (05:22)
[2022-08-21] MEDS: POTASSIUM CL 10MEQ/50ML IVPB 50 ML IV SCH (05:22)
[2022-08-21] MEDS: KCL 20 MEQ TAB (K-DUR) PO SCH (05:23)
[2022-08-21] MEDS: inSUlin ASPART (NovoLOG) 1 UNIT/0.01 ML (CHARGE PER UNIT) SC SCH ×2 (05:23→12:55)
[2022-08-21 05:24] LABS: CREATININE SERUM 1.25 MG/DL (0.60-1.30); PHOSPHORUS 2.5 MG/DL (2.3-4.7)
[2022-08-21] MEDS: DOCUSATE SODIUM 100 MG (COLACE) CAP PO SCH (08:03)
[2022-08-21] MEDS: SENNOSIDES 8.6 MG (SENOKOT) TAB PO SCH (08:03)
[2022-08-21] MEDS ORDERED: SPIRONOLACTONE 25 MG (ALDACTONE) TAB PO SCH (09:00)
[2022-08-21] MEDS ORDERED: FUROSEMIDE 20 MG (LASIX) TAB PO SCH (09:00)
[2022-08-21] MEDS ORDERED: EMPAGLIFLOZIN 10 MG TABLET (JARDIANCE) PO SCH (09:00)
[2022-08-21] MEDS ORDERED: lisINopril 5 MG (PRINIVIL) TABLET PO SCH (09:00)
[2022-08-21] MEDS: TICAGRELOR 90 MG TABLET (BRILINTA) PO SCH (09:05)
[2022-08-21] MEDS: PANTOPRAZOLE 40 MG (PROTONIX) TAB PO SCH (09:06)
[2022-08-21] MEDS: ASPIRIN 81 MG CHEW (CHILDREN'S ASA) PO SCH (09:06)
[2022-08-21] MEDS ORDERED: LISI5TAB20 PO (09:16)
[2022-08-21] MEDS ORDERED: SPIR25TA5 PO (09:16)
[2022-08-21] MEDS ORDERED: FURO20TA4 PO (09:16)
[2022-08-21] MEDS ORDERED: ASPI81TA64 PO (09:16)
[2022-08-21] MEDS ORDERED: ATOR40TA PO (09:16)
[2022-08-21] MEDS ORDERED: CLOP-31 PO (09:16)
[2022-08-21] MEDS ORDERED: CARV3.122 PO (09:16)
--- NOTE | 2022-08-21 09:17 | Discharge Summary ---
Diagnosis/Chief Complaint Date of Admission Aug 19, 2022 at 10:50 Date of Discharge Discharge Date: Aug 21, 2022 Discharge Diagnosis Assessment: Acute myocardial infarction with unstable angina presentation at [facility] requiring emergent transfer to cardiac catheterization lab and complicated LAD stent placement by Dr. Saleem History of atrial fibrillation status post ablation Diabetes insulin-dependent Refusal to take statins in the past now willing Suspected SAMI Refuses Jardiance and Brilinta due to cost Discharge Summary Discharge Physical Examination Allergies: Coded Allergies: No Known Drug Allergies (Unverified , 08/19/22) Vitals & I&Os Vital Signs Date Time Temp Pulse Resp B/P (MAP) Pulse Ox O2 Delivery O2 Flow Rate FiO2 08/21/22 12:54 36.3 85 20 152/69 97 Room Air 08/20/22 19:51 0.00 General Appearance: Alert, Oriented X3, Cooperative Respiratory: Clear to Auscultation Cardiovascular: Regular Rate Psych/Mental Status: Mental Status NL Hospital Course Was the Problem List Reviewed?: Yes Hospital course: He is a 61-year-old male with past medical history of obesity, type 2 diabetes mellitus requiring insulin and hyperlipidemia admitted to [facility] with a central chest pain and found to have a STEMI and subsequently he is transferred to [facility] via [facility] in [place] for higher level of care. He was immediately taken to the cardiac Cyanide Case Hardener and coronary angiogram done which showed LAD occlusion up to 99% from ostium to midportion requiring 4 stents. Postprocedure he is admitted to the intensive care unit. All on 08/19/22. He had imaging done(chest x-ray) which was positive for pulmonary edema, for which he was placed on Lasix and BiPAP, resulting with the edema resolving. 08/20/22 Hospitalist consultation provided direct monitoring and supportive care with assessments in agreement with Dr. Hurtado of cardiology. 08/21/22 pt still in Cardiac step down services, reports feeling a lot better and voiced multiple concerns about the cost of medications and his stay at the hospital due to "having poor insurance". Medications were discussed and agreed to, along with plans for follow up visits with Dr. Aldana at her clinic. His Hyperglycemia and HLD will be continued to be monitored as it appeared to be poorly regulated by the pt during/before his stay at the hospital. He is being DCd today 08/21/22 by his own request and the agreement of his healthcare team. ANTHONY RAMEY Aug 21, 2022 11:34 Labs (last 24 hrs) Laboratory Tests 08/19/22 13:54: Urine Color YELLOW, Urine Clarity CLEAR, Urine pH 5.0, Urine Specific [place] <=1.005, Urine Protein NEGATIVE, Urine Glucose (UA) 2+H, Urine Ketones NEGATIVE, Urine Nitrite NEGATIVE, Urine Bilirubin NEGATIVE, Urine Urobilinogen 0.2, Urine Leukocyte Esterase NEGATIVE, Urine RBC (Auto) TRACE-IH, Urine RBC NONE, Urine WBC NONE, Urine Squamous Epithelial Cells NONE, Urine Crystals NONE, Urine Bacteria NEGATIVE, Urine Casts NONE, Urine Mucus NEGATIVE, Urine Culture Indicated NO 08/19/22 17:05: Glucometer 212H 08/19/22 20:32: Glucometer 189H 08/20/22 03:46: White Blood Count 16.7H, Red Blood Count 5.10, Hemoglobin 15.3, Hematocrit 45, Mean Corpuscular Volume 88, Mean Corpuscular Hemoglobin 30, Mean Corpuscular Hemoglobin Concent 34, Red Cell Distribution Width 13.0, Platelet Count 273, Mean Platelet Volume 11.2, Immature Granulocyte % (Auto) 0, Neutrophils (%) (Auto) 88H, Lymphocytes (%) (Auto) 7L, Monocytes (%) (Auto) 5, Eosinophils (%) (Auto) 0, Basophils (%) (Auto) 0, Neutrophils # (Auto) 14.6H, Lymphocytes # (Auto) 1.1, Monocytes # (Auto) 0.8, Eosinophils # (Auto) 0.0, Basophils # (Auto) 0.0, Immature Granulocyte # (Auto) 0.1, Neutrophils % (Manual) 88, Lymphocytes % (Manual) 4, Monocytes % (Manual) 6, Eosinophils % (Manual) 1, Band Neutrophils 1, Blood Morphology Comment NORMAL, Sodium Level 138, Potassium Level 4.2, Chloride Level 109H, Carbon Dioxide Level 19L, Anion Gap 10, Blood Urea Nitrogen 15, Creatinine 1.04, Estimat Glomerular Filtration Rate 81, BUN/Creatinine Ratio 14, Glucose Level 204H, Calcium Level 8.8, Corrected Calcium 9.0, Phosphorus Level 2.7, Magnesium Level 2.2, Total Bilirubin 0.6, Aspartate Amino Transf (AST/SGOT) 176H, Alanine Aminotransferase (ALT/SGPT) 44, Alkaline Phosphatase 89, Total Protein 7.0, Albumin 3.7, Triglycerides Level 180H, Cholesterol Level 149, LDL Cholesterol Direct 101, VLDL Cholesterol 36, HDL Cholesterol 25L, Thyroid Stimulating Hormone (TSH) 0.90 08/20/22 08:25: Influenza Type A (RT-PCR) Not Detected, Influenza Type B (RT-PCR) Not Detected, SARS-CoV-2 RNA (RT-PCR) Not Detected 08/20/22 11:17: Glucometer 216H 08/20/22 16:01: Glucometer 177H 08/20/22 20:50: Glucometer 214H 08/21/22 04:55: White Blood Count 13.7H, Red Blood Count 4.80, Hemoglobin 14.5, Hematocrit 42, Mean Corpuscular Volume 88, Mean Corpuscular Hemoglobin 30, Mean Corpuscular Hemoglobin Concent 34, Red Cell Distribution Width 13.1, Platelet Count 257, Mean Platelet Volume 10.9, Immature Granulocyte % (Auto) 0, Neutrophils (%) (Auto) 83H, Lymphocytes (%) (Auto) 10L, Monocytes (%) (Auto) 6, Eosinophils (%) (Auto) 0, Basophils (%) (Auto) 0, Neutrophils # (Auto) 11.4H, Lymphocytes # (Auto) 1.3, Monocytes # (Auto) 0.9, Eosinophils # (Auto) 0.0, Basophils # (Auto) 0.0, Immature Granulocyte # (Auto) 0.1, Sodium Level 138, Potassium Level 4.1, Chloride Level 105, Carbon Dioxide Level 20L, Anion Gap 13, Blood Urea Nitrogen 20H, Creatinine 1.25, Estimat Glomerular Filtration Rate 65, BUN/Creatinine Ratio 16, Glucose Level 149H, Calcium Level 9.0, Corrected Calcium 9.3, Phosphorus Level 2.5, Total Bilirubin 1.1H, Aspartate Amino Transf (AST/SGOT) 95H, Alanine Aminotransferase (ALT/SGPT) 40, Alkaline Phosphatase 82, Total Protein 7.2, Albumin 3.6 08/21/22 11:00: Glucometer 169H Microbiology 08/19/22 MRSA Screen - Final, Complete MRSA not isolated Pending Labs Microbiology Date/Time Source Procedure Growth Status 08/19/22 14:42 Nasal MRSA Screen - Final MRSA not isolated Complete Laboratory Tests 08/19/22 13:54: Urine Color YELLOW, Urine Clarity CLEAR, Urine pH 5.0, Urine Specific [place] <=1.005, Urine Protein NEGATIVE, Urine Glucose (UA) 2+, Urine Ketones NEGATIVE, Urine Nitrite NEGATIVE, Urine Bilirubin NEGATIVE, Urine Urobilinogen 0.2, Urine Leukocyte Esterase NEGATIVE, Urine RBC (Auto) TRACE-I, Urine RBC NONE, Urine WBC NONE, Urine Squamous Epithelial Cells NONE, Urine Crystals NONE, Urine Bacteria NEGATIVE, Urine Casts NONE, Urine Mucus NEGATIVE, Urine Culture Indicated NO 08/19/22 17:05: Glucometer 212 08/19/22 20:32: Glucometer 189 08/20/22 03:46: White Blood Count 16.7, Red Blood Count 5.10, Hemoglobin 15.3, Hematocrit 45, Mean Corpuscular Volume 88, Mean Corpuscular Hemoglobin 30, Mean Corpuscular Hemoglobin Concent 34, Red Cell Distribution Width 13.0, Platelet Count 273, Mean Platelet Volume 11.2, Immature Granulocyte % (Auto) 0, Neutrophils (%) (Auto) 88, Lymphocytes (%) (Auto) 7, Monocytes (%) (Auto) 5, Eosinophils (%) (Auto) 0, Basophils (%) (Auto) 0, Neutrophils # (Auto) 14.6, Lymphocytes # (Auto) 1.1, Monocytes # (Auto) 0.8, Eosinophils # (Auto) 0.0, Basophils # (Auto) 0.0, Immature Granulocyte # (Auto) 0.1, Neutrophils % (Manual) 88, Lymphocytes % (Manual) 4, Monocytes % (Manual) 6, Eosinophils % (Manual) 1, Band Neutrophils 1, Blood Morphology Comment NORMAL, Sodium Level 138, Potassium Level 4.2, Chloride Level 109, Carbon Dioxide Level 19, Anion Gap 10, Blood Urea Nitrogen 15, Creatinine 1.04, Estimat Glomerular Filtration Rate 81, BUN/Creatinine Ratio 14, Glucose Level 204, Calcium Level 8.8, Corrected Calcium 9.0, Phosphorus Level 2.7, Magnesium Level 2.2, Total Bilirubin 0.6, Aspartate Amino Transf (AST/SGOT) 176, Alanine Aminotransferase (ALT/SGPT) 44, Alkaline Phosphatase 89, Total Protein 7.0, Albumin 3.7, Triglycerides Level 180, Cholesterol Level 149, LDL Cholesterol Direct 101, VLDL Cholesterol 36, HDL Cholesterol 25, Thyroid Stimulating Hormone (TSH) 0.90 08/20/22 08:25: Influenza Type A (RT-PCR) Not Detected, Influenza Type B (RT-PCR) Not Detected, SARS-CoV-2 RNA (RT-PCR) Not Detected 08/20/22 11:17: Glucometer 216 08/20/22 16:01: Glucometer 177 08/20/22 20:50: Glucometer 214 08/21/22 04:55: White Blood Count 13.7, Red Blood Count 4.80, Hemoglobin 14.5, Hematocrit 42, Mean Corpuscular Volume 88, Mean Corpuscular Hemoglobin 30, Mean Corpuscular Hemoglobin Concent 34, Red Cell Distribution Width 13.1, Platelet Count 257, Mean Platelet Volume 10.9, Immature Granulocyte % (Auto) 0, Neutrophils (%) (A uto) 83, Lymphocytes (%) (Auto) 10, Monocytes (%) (Auto) 6, Eosinophils (%) (Auto) 0, Basophils (%) (Auto) 0, Neutrophils # (Auto) 11.4, Lymphocytes # (Auto) 1.3, Monocytes # (Auto) 0.9, Eosinophils # (Auto) 0.0, Basophils # (Auto) 0.0, Immature Granulocyte # (Auto) 0.1, Sodium Level 138, Potassium Level 4.1, Chloride Level 105, Carbon Dioxide Level 20, Anion Gap 13, Blood Urea Nitrogen 20, Creatinine 1.25, Estimat Glomerular Filtration Rate 65, BUN/Creatinine Ratio 16, Glucose Level 149, Calcium Level 9.0, Corrected Calcium 9.3, Phosphorus Level 2.5, Total Bilirubin 1.1, Aspartate Amino Transf (AST/SGOT) 95, Alanine Aminotransferase (ALT/SGPT) 40, Alkaline Phosphatase 82, Total Protein 7.2, Albumin 3.6 08/21/22 11:00: Glucometer 169 Discharge Home Medications: Active Scripts Active Carvedilol 6.25 Mg Tablet 6.25 Mg PO BID 30 Days Plavix (Clopidogrel Bisulfate) 75 Mg Tablet 75 Mg PO DAILY Furosemide 20 Mg Tablet 20 Mg PO DAILY Children's Aspirin (Aspirin) 81 Mg Tab.chew 81 Mg PO DAILY 365 Days Spironolactone 25 Mg Tablet 25 Mg PO DAILY Lisinopril 5 Mg Tablet 5 Mg PO DAILY Lipitor (Atorvastatin Calcium) 40 Mg Tablet 40 Mg PO HS Novolin R (Insulin Regular, Human) 100 Unit/Ml Vial 100 Unit IJ DAILY 30 Days Novolin N (Insulin NPH Human Isophane) 100 Unit/Ml Vial 100 Unit SQ DAILY 30 Days Instructions to patient/family Please see electronic discharge instructions given to patient. Diagnosis/Problems Diagnosis/Problems (1) Myocardial infarction acute LORENA ALDANA DO Aug 21, 2022 09:17
[2022-08-21] MEDS ORDERED: CARV6.252 PO (09:38)
--- NOTE | 2022-08-21 09:40 | Progress Note - Cardiology ---
Cardiology SOAP Progress Note Subjective: No cp or palp or syncope or shortness of breath No n/v/d No groin or leg discomfort or discoloration No weakness. Reports more energy after cor intervention No swelling Refuses to stay in the hosp any longer Objective: I&O/Vital Signs 08/20/22 08/21/22 08/21/22 08/21/22 23:21 01:00 03:53 07:16 Temp 36.6 36.3 Pulse 85 86 93 85 Resp 16 15 B/P (MAP) 133/76 (95) 142/89 (106) Pulse Ox 96 O2 Delivery Room Air Room Air 08/21/22 08/21/22 07:37 07:57 Temp 36.3 Pulse Ox 97 O2 Delivery Room Air 08/21/22 00:00 Intake Total 910 ml Output Total 650 ml Balance 260 ml Condition: DP/PT pulses palpable Device Insertion Site: without hematoma Bruising: mild bruising Constitutional: AAO x 3, well-developed, well-nourished Respiratory: No accessory muscle use; other (fair to good, bilateral air entry) Cardiovascular: regular rate-rhythm, S1 and S2, systolic murmur (soft JENNIFER at card base) Gastrointestional: No tender; soft; No guarding, No rebound; audible bowel sounds Extremities: No clubbing, No cyanosis, No significant edema Neurologic/Psychiatric: oriented x 3, other (moves all limbs equally) Skin: No rash on exposed areas, No ulcerations on exposed areas Results/Procedures: Labs Laboratory Tests 08/20/22 11:17: Glucometer 216H 08/20/22 16:01: Glucometer 177H 08/20/22 20:50: Glucometer 214H 08/21/22 04:55: White Blood Count 13.7H, Red Blood Count 4.80, Hemoglobin 14.5, Hematocrit 42, Mean Corpuscular Volume 88, Mean Corpuscular Hemoglobin 30, Mean Corpuscular Hemoglobin Concent 34, Red Cell Distribution Width 13.1, Platelet Count 257, Mean Platelet Volume 10.9, Immature Granulocyte % (Auto) 0, Neutrophils (%) (Auto) 83H, Lymphocytes (%) (Auto) 10L, Monocytes (%) (Auto) 6, Eosinophils (%) (Auto) 0, Basophils (%) (Auto) 0, Neutrophils # (Auto) 11.4H, Lymphocytes # (Auto) 1.3, Monocytes # (Auto) 0.9, Eosinophils # (Auto) 0.0, Basophils # (Auto) 0.0, Immature Granulocyte # (Auto) 0.1, Sodium Level 138, Potassium Level 4.1, Chloride Level 105, Carbon Dioxide Level 20L, Anion Gap 13, Blood Urea Nitrogen 20H, Creatinine 1.25, Estimat Glomerular Filtration Rate 65, BUN/Creatinine Ratio 16, Glucose Level 149H, Calcium Level 9.0, Corrected Calcium 9.3, Phosphorus Level 2.5, Total Bilirubin 1.1H, Aspartate Amino Transf (AST/SGOT) 95H, Alanine Aminotransferase (ALT/SGPT) 40, Alkaline Phosphatase 82, Total Protein 7.2, Albumin 3.6 Microbiology 08/19/22 MRSA Screen - Final, Complete MRSA not isolated Laboratory Tests 08/20/22 03:46 08/21/22 04:55 A/P: Assessment: Ac ant wall STEMI - Card cath 08/19/22: LMCA Ok. LAD: up to 99% from ostium to mid portion, stented with PAULA (distal to prox - [place] 2.75x15, [place] 2.75x12, [place] 2.75x22, [place] 2.75x12). LCX has mild to mod diffuse plaque, OM 1 with up to 60% stenoses. RCA dominant, high anomalous origin, diffuse mild plaque. LVEF 31 mmHg. LVEF 45%, anteroapical hypokinesis - brief NSVT (7 beats within 12 hours of NH on 08/19/22) Ischemic cardiomyopathy and ac sys CHF DM II, insulin-requiring H/o SVT and / or A Fib, treated successfully with ablation several years ago, per pt report Hyperlipidemia that he is not treating Obesity Plan: * DAPT. He refuses Brilinta (cannot afford). We will replace with Plavix * Statin * Increase beta-trino * MERLYN-inhib * SGLT-2 inhib. He refuses (cannot affortd) * Spironolactone * Monitor labs * Dr Santos managing DM II * Advised to return to ER for any recurrence of symptoms or any new symptoms * Advised close outpt f/u [facility]EL[facility]S Aug 21, 2022 09:40
[2022-08-21] MEDS ORDERED: CLOPIDOGREL 75 MG (PLAVIX) TABLET PO NR (10:00)
--- NOTE | 2022-08-21 11:34 | Progress Note ---
ANTHONY RAMEY 08/21/22 1134: Progress Note Hospital course: He is a 61-year-old male with past medical history of obesity, type 2 diabetes mellitus requiring insulin and hyperlipidemia admitted to [facility] with a central chest pain and found to have a STEMI and subsequently he is transferred to [facility] in [place] for higher level of care. He was immediately taken to the cardiac Hardwood Floor Installation Helper and coronary angiogram done which showed LAD occlusion up to 99% from ostium to midportion requiring 4 stents. Postprocedure he is admitted to the intensive care unit. All on 08/19/22. He had imaging done(chest x-ray) which was positive for pulmonary edema, for which he was placed on Lasix and BiPAP, resulting with the edema resolving. 08/20/22 Hospitalist consultation provided direct monitoring and supportive care with assessments in agreement with Dr. Hurtado of cardiology. 08/21/22 pt still in Cardiac step down services, reports feeling a lot better and voiced multiple concerns about the cost of medications and his stay at the hospital due to "having poor insurance". Medications were discussed and agreed to, along with plans for follow up visits with Dr. Santos at her clinic. His Hyperglycemia and HLD will be continued to be monitored as it appeared to be poorly regulated by the pt during/before his stay at the hospital. He is being DCd today 08/21/22 by his own request and the agreement of his healthcare team. CONSTANCE SANTOS DO 08/22/22 0506: Supervisory-Addendum Brief Verification & Attestation Participated in pt care: history, MDM, physical Personally performed: exam, history, MDM, supervision of care Care discussed with: Medical Student Procedures: n/a Results interpretation: Verified all documentation Verification and Attestation of Medical Student E/M Service A medical student performed and documented this service in my presence. I reviewed and verified all information documented by the medical student and made modifications to such information, when appropriate. I personally performed the physical exam and medical decision making. Constance Santos, Aug 22, 2022,05:06 ANTHONY RAMEY Aug 21, 2022 11:34 CONSTANCE SANTOS DO Aug 22, 2022 05:06
[2022-08-21 12:54] VITALS: BP 152/69
== END 2022-08-21 12:50 | disposition home or self-care (01) | DRG 246 ==
LOC: ICU 10:50 → CSD 08-20 15:19
PROVIDERS: ADMIT Internal Medicine; ATTEND Internal Medicine
PROC: 027037Z Dilation of Coronary Artery, One Artery with Four or More Drug-eluting Intraluminal Devices, Percutaneous Approach (ICD-10-PCS; principal; 2022-08-19)
PROC: 4A023N7 Measurement of Cardiac Sampling and Pressure, Left Heart, Percutaneous Approach (ICD-10-PCS; 2022-08-19)
PROC: B2111ZZ Fluoroscopy of Multiple Coronary Arteries using Low Osmolar Contrast (ICD-10-PCS; 2022-08-19)
PROC: B2151ZZ Fluoroscopy of Left Heart using Low Osmolar Contrast (ICD-10-PCS; 2022-08-19)
PROC: B3101ZZ Fluoroscopy of Thoracic Aorta using Low Osmolar Contrast (ICD-10-PCS; 2022-08-19)
PROC: 5A09357 Assistance with Respiratory Ventilation, Less than 24 Consecutive Hours, Continuous Positive Airway Pressure (ICD-10-PCS; 2022-08-19)
DX: I21.02 ST elevation (STEMI) myocardial infarction involving left anterior descending coronary artery (principal); I50.21 Acute systolic (congestive) heart failure; J96.01 Acute respiratory failure with hypoxia; Z68.42 Body mass index [BMI] 45.0-49.9, adult; I25.110 Atherosclerotic heart disease of native coronary artery with unstable angina pectoris; I25.5 Ischemic cardiomyopathy; E66.01 Morbid (severe) obesity due to excess calories; E78.5 Hyperlipidemia, unspecified; G47.33 Obstructive sleep apnea (adult) (pediatric); E11.65 Type 2 diabetes mellitus with hyperglycemia; Z79.4 Long term (current) use of insulin
CPT/HCPCS: 36415; 71045; 80053; 80061; 81000; 82947; 83735; 84100; 84443; 85007; 85025; 85027; 87081; 87636; 93005; 93306; 93458; 93567; 94660; 94760

== ENCOUNTER 2022-08-24 09:26 | Inpatient (IN) | payer OTHER ==
[~2022-08-24] VITALS: Ht 177.8 cm; Wt 153.3 kg
[~2022-08-24 09:26] MED LIST: ASPI81TA64 PO; ATOR40TA PO; CARV3.122 PO; CARV6.252 PO; CLOP-31 PO; FURO20TA4 PO; INSN1U SQ; INSU100V31 IJ; LISI5TAB20 PO; SPIR25TA5 PO
[2022-08-24] MEDS ORDERED: LIDOCAINE 1% INJ 20 ML VIAL ONE (09:27)
[2022-08-24] MEDS ORDERED: HEParin 1000 UNIT/ML (10ML VIAL) FOR BOLUS ONE (09:27)
[2022-08-24] MEDS ORDERED: NITRO DRIP 25000 MCG/D5W 250 ML IV ONE (09:28)
[2022-08-24] MEDS ORDERED: HEParin (CATH LAB) 2,000 ML IV ONE (09:28)
[2022-08-24] MEDS ORDERED: NS IV 1000 ML 0 ML ONE (09:28)
[2022-08-24] MEDS ORDERED: MIDAZOLAM 5 MG/5 ML (VERSED) VIAL ONE (10:28)
[2022-08-24] MEDS ORDERED: fentaNYL INJ 100 MCG/2 ML AMP ONE (10:28)
[2022-08-24] MEDS ORDERED: NS IV 1000 ML 1,000 ML ONE (10:52)
[2022-08-24] MEDS ORDERED: EPTIFIBATIDE BOLUS 10 ML IV ONE (11:06)
[2022-08-24] MEDS ORDERED: EPTIFIBATIDE BOLUS 20 ML IV ONE (11:06)
[2022-08-24] MEDS ORDERED: EPTIFIBATIDE DRIP 0 ML IV ONE (11:06)
[2022-08-24] MEDS ORDERED: ASPIRIN 325 MG (5 GR) TABLET ONE (11:21)
[2022-08-24] MEDS ORDERED: TICAGRELOR 90 MG TABLET (BRILINTA) PO ONE (11:21)
--- NOTE | 2022-08-24 11:27 | History & Physical ---
History of Present Illness HPI/Chief Complaint CC: STEMI requiring emergent cardiac catherization HPI: This is a 61yoWM new clinic patient of mine who just had a STEMI last weekend which required extensive stenting by Dr Saleem, 4 stents in the LAD, who did well and DC home on Plavix and protocol meds who presented to the [facility] once again with chest pain DC summary from previous admit: Hospital course: He is a 61-year-old male with past medical history of obesity, type 2 diabetes mellitus requiring insulin and hyperlipidemia admitted to [facility] with a central chest pain and found to have a STEMI and subsequently he is transferred to [facility] via [facility] in [place] for higher level of care. He was immediately taken to the cardiac Catering Attendant and coronary angiogram done which showed LAD occlusion up to 99% from ostium to midportion requiring 4 stents. Postprocedure he is admitted to the intensive care unit. All on 08/19/22. He had imaging done(chest x-ray) which was positive for pulmonary edema, for which he was placed on Lasix and BiPAP, resulting with the edema resolving. 08/20/22 Hospitalist consultation provided direct monitoring and supportive care with assessments in agreement with Dr. Hurtado of cardiology. 08/21/22 pt still in Cardiac step down services, reports feeling a lot better and voiced multiple concerns about the cost of medications and his stay at the hospital due to "having poor insurance". Medications were discussed and agreed to, along with plans for follow up visits with Dr. Aldana at her clinic. His Hyperglycemia and HLD will be continued to be monitored as it appeared to be poorly regulated by the pt during/before his stay at the hospital. He is being DCd today 08/21/22 by his own request and the agreement of his healthcare team. Source: patient, family, RN/MD, old records Date Seen 08/24/22 Time Seen by a Provider: 12:00 Attending Physician No,Local Physician PCP Admitting Physician: Vane Loredo MD Attending Physician: Vane Loredo MD Referring Physician Date of Admission Aug 24, 2022 at 09:35 Home Medications & Allergies Home Medications Reviewed patient Home Medication Reconciliation performed by pharmacy medication reconciliations multi care technician and/or nursing. Patients Allergies have been reviewed. Allergies Allergies Coded Allergies No Known Drug Allergies ([id number]/17/22) Past Gotlmsx-Kldwgl-Jicinn Hx Past Med/Social Hx: Reviewed Nursing Past Med/Soc Hx, Reviewed and Corrections made Patient Social History Marrital Status: Employed/Student: employed Alcohol Use: Denies Use Smoking Status: Former Smoker Immunizations Up To Date Date of Influenza Vaccine: Jun 03, 2022 Past Medical History Surgeries: Coronary Stent Cardiac: Atrial Fibrillation, Chronic Edema/Swelling, High Cholesterol, Hypertension Endocrine: Diabetes, Insulin dep Review of Systems Constitutional: see HPI EENTM: no symptoms reported Respiratory: dyspnea on exertion Cardiovascular: chest pain Genitourinary: see HPI Musculoskeletal: see HPI Skin: see HPI Psychiatric/Neurological: See HPI All Other Systems Reviewed Negative Unless Noted: Yes Physical Exam Physical Exam Vital Signs Vital Signs - First Documented 08/24/22 08/24/22 15:18 16:13 Temp 36.0 FiO2 24 Capillary Refill : Height, Weight, BMI Height: '" Weight: lbs. oz. kg; 48.30 BMI Method: General Appearance: No Apparent Distress, WD/WN, Chronically ill, Obese Eyes: Bilateral Eye Normal Inspection, Bilateral Eye PERRL HEENT: PERRL/EOMI, Normal ENT Inspection, Pharynx Normal Neck: Full Range of Motion, Normal Inspection, Non Tender, Supple, Carotid Bruit Respiratory: Chest Non Tender, Lungs Clear, Normal Breath Sounds, No Accessory Muscle Use, No Respiratory Distress Cardiovascular: Regular Rate, Rhythm, No Edema, No Gallop, No JVD, No Murmur, Normal Peripheral Pulses Gastrointestinal: Normal Bowel Sounds, No Organomegaly, No Pulsatile Mass, Non Tender, Soft Back: Normal Inspection, No CVA Tenderness, No Vertebral Tenderness Extremity: Normal Capillary Refill, Normal Inspection, Normal Range of Motion, Non Tender, No Calf Tenderness, No Pedal Edema Neurologic/Psychiatric: Alert, Oriented x3, No Motor/Sensory Deficits, Normal Mood/Affect Skin: Normal Color, Warm/Dry Lymphatic: No Adenopathy Results Results/Procedures Labs Laboratory Tests 08/24/22 12:13 Patient resulted labs reviewed. Assessment/Plan Admission Diagnosis Assessment: STEMI diagnosed at [facility] requiring emergent transfer straight to orthodontic laboratory technician s/p angioplasty with good results suspected Plavix metabolizing deficit Acute myocardial infarction with unstable angina presentation at [facility] requiring emergent transfer to cardiac catheterization lab and complicated LAD stent placement by Dr. Saleem on 08/19/22 and DC 08/21/22 History of atrial fibrillation status post ablation Diabetes insulin-dependent Refusal to take statins in the past until DC from hospital on 08/21/22 Suspected SAMI Plan: Anjum RODRIGUEZ Lovenox Insulin Admission Status: Inpatient Order (span 2 midnights) Reason for Inpatient Admission: STEMI Diagnosis/Problems Diagnosis/Problems (1) STEMI (ST elevation myocardial infarction) (2) Status post angioplasty (3) History of coronary artery stent placement (4) SAMI (obstructive sleep apnea) (5) Diabetes mellitus (6) Plavix resistance LORENA ALDANA DO Aug 24, 2022 11:27
[2022-08-24] MEDS ORDERED: ACETAMINOPHEN 325 MG TABLET PO PRN (11:30)
[2022-08-24] MEDS ORDERED: polyethylene glycoL POWDER 17 GM (MIRALAX) PACK PO PRN (11:30)
[2022-08-24] MEDS ORDERED: diphenhydrAMINE 25 MG TAB (BENADRYL) PO PRN (11:30)
[2022-08-24] MEDS ORDERED: MELATONIN 3 MG TABLET PO PRN (11:30)
[2022-08-24] MEDS ORDERED: PATIENT MAY USE OWN MEDS, ALL PO SCH (11:30)
[2022-08-24] MEDS ORDERED: ANTACID SUSP 30 ML UDC (MYLANTA) PO PRN (11:30)
[2022-08-24] MEDS ORDERED: NS IV 500 ML 500 ML IV PRN (11:30)
[2022-08-24] MEDS ORDERED: MILK OF MAGNESIA 400 MG/5 ML 30 ML UDC PO PRN (11:30)
[2022-08-24] MEDS ORDERED: HYDROmorphone 2 MG/ML VIAL (DILAUDID) IV PRN (11:30)
[2022-08-24] MEDS ORDERED: LACTULOSE SYRUP 10GM/15ML (ENULOSE) 30ML UDC PO PRN (11:30)
[2022-08-24] MEDS ORDERED: diphenhydrAMINE 50 MG/ML INJ (BENADRYL) IVP PRN (11:30)
[2022-08-24] MEDS ORDERED: ONDANSETRON 4 MG (ZOFRAN) ORAL DISSOLVE TAB PO PRN (11:30)
[2022-08-24] MEDS ORDERED: CALCIUM CARBONATE 500 MG (TUMS) TAB.CHEW PO PRN (11:30)
[2022-08-24] MEDS ORDERED: ONDANSETRON 4 MG/2 ML (SDV) Z0FRAN IV PRN (11:30)
[2022-08-24] MEDS ORDERED: BISACODYL 10 MG SUPP (DULCOLAX) PR PRN (11:30)
--- NOTE | 2022-08-24 11:38 | Consultation-Cardiology ---
HPI-Cardiology Cardiology Consultation Date of Consultation 08/24/22 Date of Admission Time Seen by Provider: 11:34 Indication: Acute myocardial infarction HPI Patient is here on a follow-up visit, has been feeling well. No chest pain or shortness of breath. No palpitation. 61 years old gentleman with history of coronary artery disease, recent myocardial infarction and multiple stenting to the LAD. Admitted with acute ST elevation myocardial infarction. Patient had chest pain, went to the emergency room and had ST elevation in the anterior leads. Shortness of breath. Palpitation and lightheadedness. Home Medications & Allergies Allergies: Coded Allergies: No Known Drug Allergies (Unverified , 08/19/22) Home Medication List Reviewed: Yes OAI-Juhsij-Krdbug Hx Patient Social History Marital Status: Employed/Student: employed Immunizations Up To Date Date of Influenza Vaccine: Jun 03, 2022 Past Medical History Discussed below Family Medical History Family Medical Hx Family history of coronary artery disease Review of Systems-General Review of Systems Constitutional: no symptoms reported, see HPI EENTM: see HPI, no symptoms reported Respiratory: no symptoms reported, see HPI, short of breath Cardiovascular: see HPI, chest pain Gastrointestinal: no symptoms reported, see HPI Genitourinary: no symptoms reported, see HPI Musculoskeletal: no symptoms reported, see HPI Skin: no symptoms reported, see HPI Psychiatric/Neurological: No Symptoms Reported, See HPI Physical Exam Physical Exam Vital Signs Capillary Refill : Height, Weight, BMI Height: '" Weight: lbs. oz. kg; 48.30 BMI Method: General Appearance: No Apparent Distress, WD/WN Eyes: Bilateral Eye Normal Inspection, Bilateral Eye PERRL, Bilateral Eye EOMI HEENT: PERRL/EOMI, TMs Normal, Normal ENT Inspection, Pharynx Normal, Moist Mucous Membranes Neck: Full Range of Motion, Normal Inspection, Non Tender, Supple, Carotid Bruit Respiratory: Chest Non Tender, Normal Breath Sounds, No Accessory Muscle Use, No Respiratory Distress Cardiovascular: Regular Rate, Rhythm, No Edema, No Gallop, No JVD, No Murmur, Normal Peripheral Pulses Gastrointestinal: Normal Bowel Sounds, No Organomegaly, No Pulsatile Mass, Non Tender, Soft Back: Normal Inspection, No CVA Tenderness, No Vertebral Tenderness Extremity: Normal Capillary Refill, Normal Inspection, Normal Range of Motion, Non Tender, No Calf Tenderness, No Pedal Edema Neurologic/Psychiatric: Alert, Oriented x3, No Motor/Sensory Deficits, Normal Mood/Affect Skin: Normal Color, Warm/Dry Lymphatic: No Adenopathy A/P-Cardiology Admission Diagnosis Acute ST elevation myocardial infarction Coronary artery disease Hypertension Congestive heart failure, acute dilated left ventricular cardiomyopathy, ischemic cardiomyopathy Assessment/Plan Acute ST elevation myocardial infarction Had initial STEMI in August 19, 2022 with multiple stent deployment to the LAD with excellent results. Patient was discharged home. Returned on August 24, [address] elevation myocardial infarction, emergency cardiac catheterization was carried out with door to balloon time of 15 minutes. Total occlusion of the LAD underwent multiple balloon inflation in the LAD and reestablishment of the flow. Questionable poor metabolizer of Plavix. I will evaluate CYP 2C19 Switch to aspirin and Brilinta Congestive heart failure, acute left ventricular systolic dysfunction, ischemic cardiomyopathy with ejection fraction 40%, I will repeat echocardiogram after his acute event. Status post nonsustained ventricular tachycardia on August 19, 2022, currently having frequent PVCs. Ventricular bigeminy. Continue to monitor in ICU History of SVT and atrial fibrillation treated with ablation in the remote past Hypertension, started on Coreg, adding losartan Hyperlipidemia, intolerant to statin, I will try Lipitor 80 mg again Diabetes mellitus, followed and managed by primary care physician Obesity. RADHA HOLDEN MD Aug 24, 2022 11:38
--- NOTE | 2022-08-24 11:43 | Cardiac Cath Report ---
Cardiac Cath Report Physician (s)/Generation Mechanic Helper (s) Physician RADHA HOLDEN MD Pre-Procedure Diagnosis Pre-Procedure Diagnosis: Coronary artery disease, acute ST elevation myocardial infarction Post-Procedure Note Procedure Start Date: Aug 24, 2022 Name of Procedure: Left heart catheterization Emergency balloon angioplasty to the LAD Findings/Procedure Note PROCEDURE NOTE: 61-year-old gentleman with history of coronary artery disease recent myocardial infarction and multiple stenting to the LAD, had sudden onset chest pain and diaphoresis, had ST elevation in the anterior wall, brought for emergency cardiac catheterization possible PTCA. After explaining the procedure to the patient, all pros and cons were explained, all questions were answered. The patient signed the consent and then he was placed in the cardiac catheterization laboratory. Groin was prepped in SL fashion local anesthesia was used. Sheath placed in the right femoral artery. Arron left guide was advanced to the left coronary system, BMW wire was advanced in the LAD. I proceeded with emergency balloon angioplasty for in- stent restenosis with excellent results. Reestablishment of the flow from total occlusion was in 15 minutes. Then I advanced whisper extra-support wire trying to directed distally then I proceeded with balloon angioplasty again to the whole LAD and the ostium of the LAD extending to the left main with 3 x 30 millimeters balloon with excellent results. Multiple inflations were done. Arron right catheter was advanced and introduced to the left ventricular cavity, pressure was measured, pullback LV to aorta was done. Engaged the right coronary artery and angiogram was done At the end of the procedure the sheath was removed. Closure device was deployed FINDINGS: Hemodynamics LV 109/30, end-diastolic pressure of 30 Aorta 112/67 mean of 87 ANATOMY: Left Main has 20% stenosis nonobstructive disease Left Anterior Descending has total occlusion at the ostium, successful balloon angioplasty with reestablishment of the flow with 0 residual stenosis preintervention DUSTIN 0 flow postintervention DUSTIN-3 flow. Door to balloon time with reestablishment of flow was 15 minutes Left Circumflex has 50 to 60%% ostial stenosis, 20% mid stenosis Right Coronary Artery is dominant artery, has anomalous origin with 30 to 40% stenosis at the midportion, diffuse disease nonobstructive disease LV Gram was not done, pressure was measured PERCUTANEOUS INTERVENTION: Pre stenosis 100% Post Stenosis 0% Pre DUSTIN flow 0 Post DUSTIN flow 3 Dominance right coronary artery CONCLUSION: 1. Acute ST elevation myocardial infarction with total occlusion within the stent in the LAD successful emergency balloon angioplasty to the whole LAD and the left main with door to balloon time 15 minutes. With arango establishment of flow and no residual stenosis 2. Moderate stenosis at the ostium of the circumflex artery and the right coronary artery nonobstructive disease 3. Elevated left ventricular end-diastolic pressure DISCUSSION AND RECOMMENDATION: Continue to maximize medical therapy, I will switch him to Brilinta at this point and evaluate tolerance and response Anesthesia Type: Conscious Sedation Estimated blood loss (mL): 25 ml Contrast Amount: 73 ml Total Radiation Dose: 1695 mGy Post-Procedure Diagnosis Post-operative diagnosis: Acute ST elevation myocardial infarction Coronary artery disease Congestive heart failure, acute left ventricular systolic dysfunction Hypertension RADHA HOLDEN MD Aug 24, 2022 11:43
[2022-08-24 13:15] LABS: BASOPHILS % (AUTO) 0 % (0-10); EOSINOPHILS # (AUTO) 0.2 10^3/uL (0.0-0.3); EOSINOPHILS % (AUTO) 2 % (0-10); HEMATOCRIT 43 % (40-54); HEMOGLOBIN 14.3 g/dL (13.3-17.7); LYMPHOCYTES # (AUTO) 1.3 10^3/uL (1.0-4.0); LYMPHOCYTES % (AUTO) 12 % (12-44); MEAN CORPUSCULAR HEMOGLOBIN 30 pg (25-34); MEAN CORPUSCULAR HGB CONC 34 g/dL (32-36); MEAN CORPUSCULAR VOLUME 89 fL (80-99); MEAN PLATELET VOLUME 11.2 fL (9.0-12.2); MONOCYTES # (AUTO) 0.5 10^3/uL (0.0-1.0); MONOCYTES % (AUTO) 4 % (0-12); NEUTROPHILS # (AUTO) 8.9 10^3/uL (1.8-7.8); NEUTROPHILS % (AUTO) 81 % (42-75); PLATELET COUNT 350 10^3/uL (130-400); WHITE BLOOD COUNT 10.9 10^3/uL (4.3-11.0)
[2022-08-24 13:35] LABS: ALBUMIN 3.5 GM/DL (3.2-4.5); BILIRUBIN,TOTAL 0.5 MG/DL (0.1-1.0); CALCIUM 9.2 MG/DL (8.5-10.1); CREATININE SERUM 1.13 MG/DL (0.60-1.30); POTASSIUM 4.2 MMOL/L (3.6-5.0); TOTAL PROTEIN 6.8 GM/DL (6.4-8.2)
[2022-08-24] MEDS: NITROGLYCERIN 0.2 MG/PATCH (NITRO-DUR) TD SCH (15:16)
[2022-08-24 15:18] VITALS: BP 117/86
[2022-08-24] MEDS ORDERED: RT-ALBUTEROL SULF 2.5 MG/3 ML PRE-MIX VIAL INH PRN (15:30)
[2022-08-24] MEDS: inSUlin ASPART (NovoLOG) 1 UNIT/0.01 ML (CHARGE PER UNIT) SC SCH ×2 (16:02→21:04)
--- NOTE | 2022-08-24 18:24 | Tele-ICU Consult ---
History of Present Illness History of Present Illness Date Seen by Provider: Aug 24, 2022 Time Seen by Provider: 18:24 Date of Admission (Tele-ICU Physician , consultation as per request of PCP Service provided via interactive audio and video telecommunications E-CARE system to a patient admitted to ICU bed in [facility]. Available chart/ vitals / labs / Images reviewed H&P is from ER notes Patient's information available about PMH, Shx, Fhx allergy reviewed inEMR. ROS as per chart and RN report Now in ICU, hemodynamically stable Video assessment done using teleICU camera, rest of exam as per RN Discussed with RN. Consultants: Hospital course: (08/19) 61 y M with STEMI S/P PAULA LAD X 4 (08/21) Discharged home (08/24) Re-admit with STEMI. Emergent cath revealed total occlusion of LAD. Multiple balloon inflation. Patient to be placed on ASA & Brilinta instead of Plavix. A/P CAD- recent STEMI -s/p cath 08/19/22:LAD stent - ( as per notes - Refuses Brilinta due to cost- started on plavix Ischemic cardiomyopathy -LVEF 45% H/o SVT and / or A Fib - treated successfully with ablation several years ago Diabetes insulin-dependent - ISS Obesity , Suspected SAMI Lines : , (Central Line Necessity Reviewed) Owens: OG: Nutrition: Analgesia: Anxiety/ delirium VTE Prophylaxis: Stress Ulcer Prophylaxis: Plans in collaboration with bedside consultants and IM MDs. Discussed with RN to reach out if any questions or concerns A total of _10 minutes of critical care time was devoted to this patient today, required to treat and/or prevent further deterioration of critical care condition ( as above ) . I am remotely monitoring this patient from another state. I am unable to do the bedside exam, and history/physical and pertinent information is taken from other notes in the computer and bedside staff. . Reason for Visit: Acute myocardial infarction Allergies and Home Medications Allergies Coded Allergies: No Known Drug Allergies (Unverified , 08/19/22) Home Medications Aspirin 81 Mg Tab.chew, 81 MG PO DAILY Prescribed by: LORENA ALDANA on 08/21/22 0916 Atorvastatin Calcium 40 Mg Tablet, 40 MG PO HS Prescribed by: LORENA ALDANA on 08/21/22 0916 Carvedilol 6.25 Mg Tablet, 6.25 MG PO BID Prescribed by: MANUELA VERAS on 08/21/22937 Clopidogrel Bisulfate 75 Mg Tablet, 75 MG PO DAILY Prescribed by: LORENA ALDANA on 08/21/22915 Furosemide 20 Mg Tablet, 20 MG PO DAILY Prescribed by: LORENA ALDANA on 08/21/22915 Insulin NPH Human Isophane 100 Unit/Ml Vial, 100 UNIT SQ DAILY Prescribed by: TRENTON LOUIS on 08/19/22 135 Insulin Regular, Human 100 Unit/Ml Vial, 100 UNIT IJ DAILY Prescribed by: TRENTON LOUIS on 08/19/22 135 Lisinopril 5 Mg Tablet, 5 MG PO DAILY Prescribed by: LORENA ALDANA on 08/21/22915 Spironolactone 25 Mg Tablet, 25 MG PO DAILY Prescribed by: LORENA ALDANA on 08/21/22915 Past Medical/Social/Family Hx Patient Social History Marrital Status: Employed/Student: employed Tobacco Use?: No Smoking Status: Former Smoker Smokeless type used: Chew Smokeless Tobacco Frequency: Current Everyday User Substance use?: No Alcohol Use?: No Pt stated abuse/neglect: No Immunizations Up To Date Influenza Vaccine Up-to-Date: Yes; Up-to-Date Current Status Advance Directives: No Communicates: Verbally Primary Language: Cambodian Is interpretation needed?: No Sensory deficits: Vision impairment Implanted or Applied Medical D: Stents Review of Systems Constitutional: see HPI Focused Exam Height, Weight, BMI Height: '" Weight: lbs. oz. kg; 48.36 BMI Method: Exam Exam Patient acknowledged, consented, and participated in this virtual visit which was conducted using real time audio/video Vital Signs Date Time Temp Pulse Resp B/P (MAP) Pulse Ox O2 Delivery O2 Flow Rate FiO2 08/24/22 18:00 75 42 94 Room Air 08/24/22 17:00 75 31 108/66 (80) 94 Room Air 08/24/22 16:13 36.0 08/24/22 16:00 78 19 107/65 (79) 97 Room Air 08/24/22 15:44 96 Room Air 08/24/22 15:18 85 95 24 08/24/22 15:00 79 37 104/72 (83) 92 Room Air 08/24/22 14:53 Room Air 12/22/22 14:30 85 98 115/75 (88) 95 Nasal Cannula 1.00 08/24/22 14:00 85 22 117/86 (96) 95 Nasal Cannula 1.00 08/24/22 13:30 77 15 133/80 (97) 100 Nasal Cannula 1.00 08/24/22 13:00 77 08/24/22 13:00 73 14 124/79 (94) 98 Nasal Cannula 1.00 08/24/22 12:45 75 8 128/87 (101) 99 Nasal Cannula 1.00 08/24/22 12:30 77 15 127/81 (96) 98 Nasal Cannula 1.00 08/24/22 12:18 Nasal Cannula 1.00 08/24/22 12:15 80 18 114/72 (86) 96 Nasal Cannula 1.00 08/24/22 12:00 Nasal Cannula 1.00 08/24/22 12:00 78 6 120/74 (89) 97 Nasal Cannula 1.00 Height & Weight Height: '" Weight: lbs. oz. kg; 48.36 BMI Method: General Appearance: No Apparent Distress, WD/WN, Chronically ill, Obese HEENT: PERRL/EOMI, Normal ENT Inspection, Pharynx Normal Neck: Full Range of Motion, Normal Inspection, Non Tender, Supple, Carotid Bruit Respiratory: Chest Non Tender, Lungs Clear, Normal Breath Sounds, No Accessory Muscle Use, No Respiratory Distress Cardiovascular: Regular Rate, Rhythm, No Edema, No Gallop, No JVD, No Murmur, Normal Peripheral Pulses Capillary Refill: Less Than 3 Seconds Extremity: Normal Capillary Refill, Normal Inspection, Normal Range of Motion, Non Tender, No Calf Tenderness, No Pedal Edema Neurologic/Psychiatric: Alert, Oriented x3, No Motor/Sensory Deficits, Normal Mood/Affect Skin: Normal Color, Warm/Dry Lymphatic: No Adenopathy Results Lab Laboratory Tests 08/24/22 12:13 Assessment/Plan Assessment/Plan 1 THALIA BARLOW MD Aug 24, 2022 18:24
[2022-08-24] MEDS: SENNOSIDES 8.6 MG (SENOKOT) TAB PO SCH (20:08)
[2022-08-24] MEDS: DOCUSATE SODIUM 100 MG (COLACE) CAP PO SCH (20:08)
[2022-08-24] MEDS: TICAGRELOR 90 MG TABLET (BRILINTA) PO SCH (20:08)
[2022-08-24] MEDS: NS IV 1000 ML 1,000 ML IV SCH (20:08)
[2022-08-24] MEDS: ENOXAPARIN 40 MG/0.4 ML (LOVENOX) SYR SC SCH (20:09)
[2022-08-24] MEDS ORDERED: NITROGLYCERIN PATCH REMOVAL TP SCH (21:00)
[2022-08-25 05:31] LABS: BASOPHILS % (AUTO) 0 % (0-10); EOSINOPHILS # (AUTO) 0.1 10^3/uL (0.0-0.3); EOSINOPHILS % (AUTO) 1 % (0-10); HEMATOCRIT 41 % (40-54); HEMOGLOBIN 13.9 g/dL (13.3-17.7); LYMPHOCYTES # (AUTO) 1.5 10^3/uL (1.0-4.0); LYMPHOCYTES % (AUTO) 12 % (12-44); MEAN CORPUSCULAR HEMOGLOBIN 30 pg (25-34); MEAN CORPUSCULAR HGB CONC 34 g/dL (32-36); MEAN CORPUSCULAR VOLUME 88 fL (80-99); MEAN PLATELET VOLUME 11.4 fL (9.0-12.2); MONOCYTES # (AUTO) 0.9 10^3/uL (0.0-1.0); MONOCYTES % (AUTO) 7 % (0-12); NEUTROPHILS # (AUTO) 9.6 10^3/uL (1.8-7.8); NEUTROPHILS % (AUTO) 79 % (42-75); PLATELET COUNT 308 10^3/uL (130-400); WHITE BLOOD COUNT 12.2 10^3/uL (4.3-11.0)
[2022-08-25 05:44] LABS: ALBUMIN 3.2 GM/DL (3.2-4.5); POTASSIUM 3.9 MMOL/L (3.6-5.0)
[2022-08-25 05:45] LABS: CALCIUM 8.8 MG/DL (8.5-10.1)
[2022-08-25 05:47] LABS: TOTAL PROTEIN 6.5 GM/DL (6.4-8.2)
[2022-08-25 05:48] LABS: BILIRUBIN,TOTAL 0.7 MG/DL (0.1-1.0)
[2022-08-25 05:50] LABS: CREATININE SERUM 0.88 MG/DL (0.60-1.30); PHOSPHORUS 2.6 MG/DL (2.3-4.7)
[2022-08-25] MEDS: inSUlin ASPART (NovoLOG) 1 UNIT/0.01 ML (CHARGE PER UNIT) SC SCH ×2 (05:53→12:28)
[2022-08-25 05:54] LABS: MAGNESIUM 1.9 MG/DL (1.6-2.4)
[2022-08-25] MEDS: NS IV 1000 ML 1,000 ML IV SCH ×2 (05:54→07:55)
[2022-08-25] MEDS ORDERED: KCL 20 MEQ TAB (K-DUR) PO SCH (06:00)
[2022-08-25] MEDS ORDERED: MAGNESIUM 1 GM/100 ML IVPB 100 ML IV SCH (06:00)
[2022-08-25] MEDS ORDERED: POTASSIUM CL 10MEQ/50ML IVPB 50 ML IV SCH (06:00)
[2022-08-25] MEDS: TICAGRELOR 90 MG TABLET (BRILINTA) PO SCH (08:35)
[2022-08-25] MEDS: ENOXAPARIN 40 MG/0.4 ML (LOVENOX) SYR SC SCH (08:37)
[2022-08-25] MEDS: DOCUSATE SODIUM 100 MG (COLACE) CAP PO SCH (08:37)
[2022-08-25] MEDS: SENNOSIDES 8.6 MG (SENOKOT) TAB PO SCH (08:37)
[2022-08-25] MEDS ORDERED: PANTOPRAZOLE 40 MG (PROTONIX) TAB PO SCH (09:00)
[2022-08-25] MEDS ORDERED: LOSARTAN 25 MG (COZAAR) TAB PO SCH (09:00)
[2022-08-25] MEDS ORDERED: ASPIRIN E.C. 81 MG (ECOTRIN) TAB PO SCH (09:00)
[2022-08-25] MEDS: NITROGLYCERIN 0.2 MG/PATCH (NITRO-DUR) TD SCH (09:51)
[2022-08-25] MEDS ORDERED: ISOSORBIDE MONONITRATE 30 MG (IMDUR) TAB PO SCH (10:00)
--- NOTE | 2022-08-25 10:12 | Cardiology Progress Note ---
Subjective Date Seen by Provider: Aug 25, 2022 Time Seen by Provider: 10:10 Subjective/Events-last exam Patient was seen at bedside, laying down comfortably, feeling better. Had an episode of tachycardia earlier this morning improved after Valsalva maneuver Review of Systems General: No Chills, No Night Sweats, No Fatigue, No Malaise, No Appetite, No Other HEENT: No Head Aches, No Visual Changes, No Eye Pain, No Ear Pain, No Dysphasia, No Sinus Congestion, No Post Nasal Drip, No Sore Throat, No Other Pulmonary: No Dyspnea, No Cough, No Pleuritic Chest Pain, No Other Cardiovascular: Chest Pain; No: Palpitations, Orthopnea, Paroxysmal Noc. Dyspnea, Edema, Lt Headedness, Other Objective-Cardiology Exam Last Set of Vital Signs Vital Signs 08/24/22 08/25/22 08/25/22 08/25/22 15:18 07:18 07:48 09:00 Temp 36.2 Pulse 84 Resp 23 B/P (MAP) 126/75 (92) Pulse Ox 96 O2 Delivery Room Air O2 Flow Rate 0.00 FiO2 24 I&O Intake and Output 08/25/22 00:00 Intake Total 1350 ml Output Total 1125 ml Balance 225 ml Intake Oral 1350 ml Output Urine Total 1125 ml Daily Weight Change No General: Alert, Oriented X3, Cooperative HEENT: Atraumatic, PERRLA Neck: Supple, No JVD, No Thyromegaly Lungs: Clear to Auscultation, Normal Air Movement Heart: Regular Rate, Normal S1, Normal S2, No Murmurs Abdomen: Normal Bowel Sounds, Soft, No Tenderness, No Hepatosplenomegaly, No Masses Extremities: No Clubbing, No Cyanosis, No Edema, Normal Pulses, No Tenderness/Swelling Skin: No Rashes, No Breakdown, No Significant Lesion Neuro: Normal Gait, Normal Speech, Strength at 5/5 X4 Ext, Normal Tone, Sensation Intact Psych/Mental Status: Mental Status NL, Mood NL Results Lab Laboratory Tests 08/24/22 12:13 08/25/22 04:25 A/P-Cardiology Admission Diagnosis Acute ST elevation myocardial infarction Coronary artery disease Hypertension Congestive heart failure, acute dilated left ventricular cardiomyopathy, ischemic cardiomyopathy Assessment/Plan Status post acute ST elevation myocardial infarction Had initial STEMI in August 19, 2022 with multiple stent deployment to the LAD with excellent results. Patient was discharged home. Returned on August 24, [address] elevation myocardial infarction, emergency cardiac catheterization was carried out with door to balloon time of 15 minutes. Total occlusion of the LAD underwent multiple balloon inflation in the LAD and reestablishment of the flow. Questionable poor metabolizer of Plavix. I will evaluate CYP 2C19 Started on aspirin and Brilinta Congestive heart failure, dilated cardiomyopathy, acute on chronic left ventricular systolic dysfunction, ejection fraction has declined to 30-35%. Maintained on beta-blockers, ARB. Adding Imdur, adding Jardiance Status post nonsustained ventricular tachycardia on August 19, 2022, currently having frequent PVCs. Ventricular bigeminy. Continue to monitor in ICU History of SVT and atrial fibrillation treated with ablation in the remote past Hypertension, tolerating Coreg and losartan Hyperlipidemia, intolerant to statin, I will try Lipitor 80 mg again Diabetes mellitus, followed and managed by primary care physician Obesity BMI 48, discussed weight loss and exercise I will arrange for LifeVest fitting Okay for discharge and follow-up with Dr. Saleem as an outpatient RADHA HOLDEN MD Aug 25, 2022 10:12
[2022-08-25] MEDS ORDERED: EMPAGLIFLOZIN 10 MG TABLET (JARDIANCE) PO SCH (10:15)
[2022-08-25] MEDS ORDERED: TICA90TA PO (10:47)
[2022-08-25] MEDS ORDERED: PANT40TA52 PO (10:47)
[2022-08-25] MEDS ORDERED: ISOS30TA82 PO (10:47)
[2022-08-25] MEDS ORDERED: LOSA25TA41 PO (10:47)
[2022-08-25] MEDS ORDERED: ATOR80TA76 PO (10:47)
[2022-08-25] MEDS ORDERED: EMPA10TA PO (10:47)
--- NOTE | 2022-08-25 10:47 | Tele-ICU Progress Note ---
Subjective Date Seen by a Provider: Aug 25, 2022 Time Seen by a Provider: 10:47 Subjective/Events-last exam (Tele-ICU Physician , consultation as per request of PCP Service provided via interactive audio and video telecommunications E-CARE system to a patient admitted to ICU bed in [facility]. Available chart/ vitals / labs / Images reviewed H&P is from ER notes Patient's information available about PMH, Shx, Fhx allergy reviewed inEMR. ROS as per chart and RN report Now in ICU, hemodynamically stable Video assessment done using teleICU camera, rest of exam as per RN Discussed with RN. Consultants: Hospital course: (08/19) 61 y M with STEMI S/P PAULA LAD X 4 (08/21) Discharged home (08/24) Re-admit with STEMI. Emergent cath revealed total occlusion of LAD. Multiple balloon inflation. Patient to be placed on ASA & Brilinta instead of Plavix. A/P CAD- recent STEMI -s/p cath 08/19/22:LAD stent - (08/24) Re-admit with STEMI. Emergent cath revealed total occlusion of LAD. Multiple balloon inflation. Patient to be placed on ASA & Brilinta instead of Plavix. Ischemic cardiomyopathy -LVEF 45% H/o SVT and / or A Fib - treated successfully with ablation several years ago Diabetes insulin-dependent - ISS Obesity , Suspected SAMI VTE Prophylaxis: LV 40 Stress Ulcer Prophylaxis: NA Plans in collaboration with bedside consultants and IM MDs. Discussed with RN to reach out if any questions or concerns A total of _10 minutes of critical care time was devoted to this patient today, required to treat and/or prevent further deterioration of critical care condition ( as above ) . Sepsis Event Evaluation Height, Weight, BMI Height: '" Weight: lbs. oz. kg; 48.49 BMI Method: Exam Exam Patient acknowledged, consented, and participated in this virtual visit which was conducted using real time audio/video Vital Signs Date Time Temp Pulse Resp B/P (MAP) Pulse Ox O2 Delivery O2 Flow Rate FiO2 08/25/22 10:00 91 24 119/70 (86) 95 Room Air 08/25/22 09:00 84 23 126/75 (92) 96 Room Air 08/25/22 08:00 96 Room Air 08/25/22 08:00 88 18 106/65 (79) 92 Room Air 08/25/22 07:48 36.2 08/25/22 07:18 97 Room Air 0.00 08/25/22 07:00 90 08/25/22 07:00 78 18 124/79 (94) 92 Room Air 08/25/22 06:00 87 125/75 (92) 93 Room Air 08/25/22 05:00 80 22 120/82 (95) 95 Room Air 08/25/22 04:00 80 23 131/73 (92) 93 Room Air 08/25/22 04:00 94 Room Air 08/25/22 03:00 76 20 115/80 (92) 94 Room Air 08/25/22 02:00 75 17 119/76 (90) 95 Room Air 08/25/22 01:00 78 28 108/73 (85) 95 Room Air 08/25/22 01:00 80 08/25/22 00:00 73 26 112/66 (81) 97 Room Air 08/24/22 23:59 94 Room Air 08/24/22 23:42 36.4 08/24/22 23:00 72 26 101/66 (78) 95 Room Air 08/24/22 22:00 78 19 104/66 (79) 95 Room Air 08/24/22 21:00 82 22 95 Room Air 08/24/22 20:03 36.1 08/24/22 20:00 80 22 99/56 (70) 97 Room Air 08/24/22 20:00 94 Room Air 08/24/22 19:00 76 112/70 (84) 95 Room Air 08/24/22 19:00 72 08/24/22 18:00 75 42 94 Room Air 08/24/22 17:00 75 31 108/66 (80) 94 Room Air 08/24/22 16:13 36.0 08/24/22 16:00 78 19 107/65 (79) 97 Room Air 08/24/22 15:44 96 Room Air 08/24/22 15:18 85 95 24 08/24/22 15:00 79 37 104/72 (83) 92 Room Air 08/24/22 14:53 Room Air 08/24/22 14:30 85 98 115/75 (88) 95 Nasal Cannula 1.00 08/24/22 14:00 85 22 117/86 (96) 95 Nasal Cannula 1.00 08/24/22 13:30 77 15 133/80 (97) 100 Nasal Cannula 1.00 08/24/22 13:00 77 08/24/22 13:00 73 14 124/79 (94) 98 Nasal Cannula 1.00 08/24/22 12:45 75 8 128/87 (101) 99 Nasal Cannula 1.00 08/24/22 12:30 77 15 127/81 (96) 98 Nasal Cannula 1.00 08/24/22 12:18 Nasal Cannula 1.00 08/24/22 12:15 80 18 114/72 (86) 96 Nasal Cannula 1.00 08/24/22 12:00 Nasal Cannula 1.00 08/24/22 12:00 78 6 120/74 (89) 97 Nasal Cannula 1.00 I & O 08/25/22 07:00 Intake Total 1850 ml Output Total 1675 ml Balance 175 ml Height & Weight Height: '" Weight: lbs. oz. kg; 48.49 BMI Method: General Appearance: No Apparent Distress, WD/WN, Chronically ill, Obese HEENT: PERRL/EOMI, Normal ENT Inspection, Pharynx Normal Neck: Full Range of Motion, Normal Inspection, Non Tender, Supple, Carotid Bruit Respiratory: Chest Non Tender, Lungs Clear, Normal Breath Sounds, No Accessory Muscle Use, No Respiratory Distress Cardiovascular: Regular Rate, Rhythm, No Edema, No Gallop, No JVD, No Murmur, Normal Peripheral Pulses Capillary Refill: Less Than 3 Seconds Extremity: Normal Capillary Refill, Normal Inspection, Normal Range of Motion, Non Tender, No Calf Tenderness, No Pedal Edema Neurologic/Psychiatric: Alert, Oriented x3, No Motor/Sensory Deficits, Normal Mood/Affect Skin: Normal Color, Warm/Dry Lymphatic: No Adenopathy Results Lab Laboratory Tests 08/24/22 12:13 08/25/22 04:25 Assessment/Plan Assessment/Plan 1 THALIA BARLOW MD Aug 25, 2022 10:47
--- NOTE | 2022-08-25 10:49 | Discharge Summary ---
Diagnosis/Chief Complaint Date of Admission Aug 24, 2022 at 09:35 Date of Discharge Discharge Date: Aug 25, 2022 Discharge Diagnosis Assessment: STEMI diagnosed at [facility] requiring emergent transfer straight to animal laboratory technician s/p angioplasty with good results suspected Plavix metabolizing deficit Acute myocardial infarction with unstable angina presentation at [facility] requiring emergent transfer to cardiac catheterization lab and complicated LAD stent placement by Dr. Saleem on 08/19/22 and DC 08/21/22 Suppressed systolic function requiring LifeVest History of atrial fibrillation status post ablation SVT episode with PVCs Diabetes insulin-dependent hemoglobin A1c 7.3 Refusal to take statins in the past until DC from hospital on 08/21/22 Suspected SAMI Elevated liver enzymes Discharge Summary Discharge Physical Examination Allergies: Coded Allergies: No Known Drug Allergies (Unverified , 08/19/22) Vitals & I&Os Vital Signs Date Time Temp Pulse Resp B/P (MAP) Pulse Ox O2 Delivery O2 Flow Rate FiO2 08/25/22 16:30 08/25/22 16:00 84 25 95 Room Air 08/25/22 12:00 36.3 08/25/22 07:18 0.00 08/24/22 15:18 24 General Appearance: Alert, Oriented X3, Cooperative Respiratory: Clear to Auscultation Cardiovascular: Regular Rate Psych/Mental Status: Mental Status NL Hospital Course Was the Problem List Reviewed?: Yes Standard hospital course after he underwent emergent cardiac catheterization with balloon opening acutely occluded stents of LAD by Dr. Loredo. Patient maintained on Brilinta. Jardiance added. LifeVest placed before discharge due to suppressed systolic function with PVCs and SVT high risk for ventricular arrhythmia. He will close follow-up with me. Labs (last 24 hrs) Laboratory Tests 08/24/22 12:13: White Blood Count 10.9, Red Blood Count 4.76, Hemoglobin 14.3, Hematocrit 43, Mean Corpuscular Volume 89, Mean Corpuscular Hemoglobin 30, Mean Corpuscular Hemoglobin Concent 34, Red Cell Distribution Width 13.0, Platelet Count 350, Mean Platelet Volume 11.2, Immature Granulocyte % (Auto) 1, Neutrophils (%) (Auto) 81H, Lymphocytes (%) (Auto) 12, Monocytes (%) (Auto) 4, Eosinophils (%) (Auto) 2, Basophils (%) (Auto) 0, Neutrophils # (Auto) 8.9H, Lymphocytes # (Auto) 1.3, Monocytes # (Auto) 0.5, Eosinophils # (Auto) 0.2, Basophils # (Auto) 0.0, Immature Granulocyte # (Auto) 0.1, Sodium Level 139, Potassium Level 4.2, Chloride Level 106, Carbon Dioxide Level 23, Anion Gap 10, Blood Urea Nitrogen 16, Creatinine 1.13, Estimat Glomerular Filtration Rate 73, BUN/Creatinine Ratio 14, Glucose Level 194H, Calcium Level 9.2, Corrected Calcium 9.6, Total Bilirubin 0.5, Aspartate Amino Transf (AST/SGOT) 251H, Alanine Aminotransferase (ALT/SGPT) 78H, Alkaline Phosphatase 89, Troponin I 24.585*H, Total Protein 6.8, Albumin 3.5 08/24/22 15:51: Glucometer 184H 08/24/22 17:35: Mean Blood Glucose 163H, Hemoglobin A1c 7.3H, Thyroid Stimulating Hormone (TSH) 3.75 08/24/22 20:57: Glucometer 242H 08/25/22 04:25: White Blood Count 12.2H, Red Blood Count 4.70, Hemoglobin 13.9, Hematocrit 41, Mean Corpuscular Volume 88, Mean Corpuscular Hemoglobin 30, Mean Corpuscular Hemoglobin Concent 34, Red Cell Distribution Width 12.9, Platelet Count 308, Mean Platelet Volume 11.4, Immature Granulocyte % (Auto) 1, Neutrophils (%) (Auto) 79H, Lymphocytes (%) (Auto) 12, Monocytes (%) (Auto) 7, Eosinophils (%) (Auto) 1, Basophils (%) (Auto) 0, Neutrophils # (Auto) 9.6H, Lymphocytes # (Auto) 1.5, Monocytes # (Auto) 0.9, Eosinophils # (Auto) 0.1, Basophils # (Auto) 0.0, Immature Granulocyte # (Auto) 0.1, Sodium Level 137, Potassium Level 3.9, Chloride Level 105, Carbon Dioxide Level 21, Anion Gap 11, Blood Urea Nitrogen 13, Creatinine 0.88, Estimat Glomerular Filtration Rate 97, BUN/Creatinine Ratio 15, Glucose Level 180H, Calcium Level 8.8, Corrected Calcium 9.4, Phosphorus Level 2.6, Magnesium Level 1.9, Total Bilirubin 0.7, Aspartate Amino Transf (AST/SGOT) 216H, Alanine Aminotransferase (ALT/SGPT) 85H, Alkaline Phosphatase 83, Total Protein 6.5, Albumin 3.2, Triglycerides Level 126, Cholesterol Level 113, LDL Cholesterol Direct 75, VLDL Cholesterol 25, HDL Cholesterol 17L 08/25/22 11:09: Glucometer 289H Microbiology 08/24/22 MRSA Screen - Final, Complete MRSA not isolated Pending Labs Microbiology Date/Time Source Procedure Growth Status 08/24/22 12:10 Nasal MRSA Screen - Final MRSA not isolated Complete Laboratory Tests 08/24/22 12:13: White Blood Count 10.9, Red Blood Count 4.76, Hemoglobin 14.3, Hematocrit 43, Mean Corpuscular Volume 89, Mean Corpuscular Hemoglobin 30, Mean Corpuscular Hemoglobin Concent 34, Red Cell Distribution Width 13.0, Platelet Count 350, Mean Platelet Volume 11.2, Immature Granulocyte % (Auto) 1, Neutrophils (%) (Auto) 81, Lymphocytes (%) (Auto) 12, Monocytes (%) (Auto) 4, Eosinophils (%) (Auto) 2, Basophils (%) (Auto) 0, Neutrophils # (Auto) 8.9, Lymphocytes # (Auto) 1.3, Monocytes # (Auto) 0.5, Eosinophils # (Auto) 0.2, Basophils # (Auto) 0.0, Immature Granulocyte # (Auto) 0.1, Sodium Level 139, Potassium Level 4.2, Chloride Level 106, Carbon Dioxide Level 23, Anion Gap 10, Blood Urea Nitrogen 16, Creatinine 1.13, Estimat Glomerular Filtration Rate 73, BUN/Creatinine Ratio 14, Glucose Level 194, Calcium Level 9.2, Corrected Calcium 9.6, Total Bilirubin 0.5, Aspartate Amino Transf (AST/SGOT) 251, Alanine Aminotransferase (ALT/SGPT) 78, Alkaline Phosphatase 89, Troponin I 24.585, Total Protein 6.8, Albumin 3.5 08/24/22 15:51: Glucometer 184 08/24/22 17:35: Mean Blood Glucose 163, Hemoglobin A1c 7.3, Thyroid Stimulating Hormone (TSH) 3.75 08/24/22 20:57: Glucometer 242 08/25/22 04:25: White Blood Count 12.2, Red Blood Count 4.70, Hemoglobin 13.9, Hematocrit 41, Mean Corpuscular Volume 88, Mean Corpuscular Hemoglobin 30, Mean Corpuscular Hemoglobin Concent 34, Red Cell Distribution Width 12.9, Platelet Count 308, Mean Platelet Volume 11.4, Immature Granulocyte % (Auto) 1, Neutrophils (%) (Auto) 79, Lymphocytes (%) (Auto) 12, Monocytes (%) (Auto) 7, Eosinophils (%) (Auto) 1, Basophils (%) (Auto) 0, Neutrophils # (Auto) 9.6, Lymphocytes # (Auto) 1.5, Monocytes # (Auto) 0.9, Eosinophils # (Auto) 0.1, Basophils # (Auto) 0.0, Immature Granulocyte # (Auto) 0.1, Sodium Level 137, Potassium Level 3.9, Chloride Level 105, Carbon Dioxide Level 21, Anion Gap 11, Blood Urea Nitrogen 13, Creatinine 0.88, Estimat Glomerular Filtration Rate 97, BUN/Creatinine Ratio 15, Glucose Level 180, Calcium Level 8.8, Corrected Calcium 9.4, Phosphorus Level 2.6, Magnesium Level 1.9, Total Bilirubin 0.7, Aspartate Amino Transf (AST/SGOT) 216, Alanine Aminotransferase (ALT/SGPT) 85, Alkaline Phosphatase 83, Total Protein 6.5, Albumin 3.2, Triglycerides Level 126, Cholesterol Level 113, LDL Cholesterol Direct 75, VLDL Cholesterol 25, HDL Cholesterol 17 08/25/22 11:09: Glucometer 289 Discharge Home Medications: Active Scripts Active Jardiance (Empagliflozin) 10 Mg Tablet 10 Mg PO DAILY Pantoprazole Sodium 40 Mg Tablet.dr 40 Mg PO DAILY Brilinta (Ticagrelor) 90 Mg Tablet 90 Mg PO BID Isosorbide Mononitrate ER (Isosorbide Mononitrate) 30 Mg Tab.er.24h 30 Mg PO DAILY Losartan Potassium 25 Mg Tablet 25 Mg PO DAILY Atorvastatin Calcium 80 Mg Tablet 80 Mg PO HS Carvedilol 6.25 Mg Tablet 6.25 Mg PO BID 30 Days Furosemide 20 Mg Tablet 20 Mg PO DAILY Children's Aspirin (Aspirin) 81 Mg Tab.chew 81 Mg PO DAILY 365 Days Novolin R (Insulin Regular, Human) 100 Unit/Ml Vial 100 Unit IJ DAILY 30 Days Novolin N (Insulin NPH Human Isophane) 100 Unit/Ml Vial 100 Unit SQ DAILY 30 Days Instructions to patient/family Please see electronic discharge instructions given to patient. Diagnosis/Problems Diagnosis/Problems (1) STEMI (ST elevation myocardial infarction) Qualifiers: Qualified Codes: I21.01 - ST elevation (STEMI) myocardial infarction involving left main coronary artery (2) Status post angioplasty (3) History of coronary artery stent placement (4) SAMI (obstructive sleep apnea) (5) Diabetes mellitus (6) Plavix resistance LORENA ALDANA DO Aug 25, 2022 10:49
== END 2022-08-25 16:30 | disposition home or self-care (01) | DRG 250 ==
LOC: ICU 09:35
PROVIDERS: ADMIT Internal Medicine; ATTEND Internal Medicine
PROC: 02703ZZ Dilation of Coronary Artery, One Artery, Percutaneous Approach (ICD-10-PCS; principal; 2022-08-24)
PROC: 4A023N7 Measurement of Cardiac Sampling and Pressure, Left Heart, Percutaneous Approach (ICD-10-PCS; 2022-08-24)
PROC: B2111ZZ Fluoroscopy of Multiple Coronary Arteries using Low Osmolar Contrast (ICD-10-PCS; 2022-08-24)
DX: I21.01 ST elevation (STEMI) myocardial infarction involving left main coronary artery (principal); I50.21 Acute systolic (congestive) heart failure; I47.1 Supraventricular tachycardia; Z68.41 Body mass index [BMI] 40.0-44.9, adult; G47.33 Obstructive sleep apnea (adult) (pediatric); E11.9 Type 2 diabetes mellitus without complications; I48.91 Unspecified atrial fibrillation; E66.9 Obesity, unspecified; E78.00 Pure hypercholesterolemia, unspecified; I25.110 Atherosclerotic heart disease of native coronary artery with unstable angina pectoris; I25.5 Ischemic cardiomyopathy; I11.0 Hypertensive heart disease with heart failure; Z87.891 Personal history of nicotine dependence
CPT/HCPCS: 36415; 80053; 80061; 82947; 83036; 83735; 84100; 84443; 84484; 85025; 85027; 87081; 93306; 93458

== ENCOUNTER → 2022-11-23 | Outpatient (CLI) | payer OTHER ==
[~2022-11-23] MED LIST changes: +ATOR80TA76 PO; +EMPA10TA PO; +ISOS30TA82 PO; +LOSA25TA41 PO; +PANT40TA52 PO; +TICA90TA PO
== END ==
LOC: CARD 10:38
PROVIDERS: ATTEND Nurse Practitioner Family
DX: I35.1 Nonrheumatic aortic (valve) insufficiency (principal); I51.7 Cardiomegaly; I25.5 Ischemic cardiomyopathy
CPT/HCPCS: 93306